=== PATIENT | female | born 1960 | race Caucasian/White ===

== ENCOUNTER 2017-10-26 09:11 | Day surgery (SDC) | payer MEDICAID, OTHER ==
[2017-10-26] MEDS ORDERED: DIAZEPAM 5 MG TAB PO ONE (09:19)
[2017-10-26] MEDS ORDERED: diphenhydrAMINE 25 MG CAP PO ONE ×2 (09:19→09:53)
[2017-10-26] MEDS ORDERED: FAMOTIDINE 20 MG TAB PO ONE (09:19)
[2017-10-26] MEDS ORDERED: NS 1,000 ML IV ONE (09:19)
[2017-10-26] MEDS ORDERED: ASPIRIN EC 325 MG TAB PO ONE ×2 (09:19→09:53)
--- NOTE | 2017-10-26 09:40 | CPEKG ---
Heart Rate: 74 RR Interval: 811 P-R Interval: 132 QRSD Interval: 90 QT Interval: 424 QTC Interval: 471 P [place]: 68 QRS [place]: 85 T Wave [place]: -59 EKG Severity - ABNORMAL ECG - EKG Impression: SINUS RHYTHM EKG Impression: NONSPECIFIC REPOL ABNORMALITY, DIFFUSE LEADS EKG Impression: INFEROLATERAL ST/T WAVE CHANGES ARE MORE PRONOUNCED WITH THIS ECG Electronically Signed By: Raymond Donis 26-Oct-2017 22:56:01
--- NOTE | 2017-10-26 09:46 | PDHPUP ---
History & Physical Update H&P update statement: This history and physical update is based on an assessment of the patient which was completed after admission or registration (within 24 hours), but prior to the surgery/procedure. H&P update: H&P reviewed & patient examined, no change in patient's condition since H&P completed
--- NOTE | 2017-10-26 09:47 | PDPROPOC ---
Sedation Plan of Care Sedation Plan of Care: vital signs stable, mental status noted, patient educated of risks, benefits, alternatives, patient can tolerate sedation ASA Classification: ASA 2 Planned drugs: fentanyl, midazolam Mallampati Score: Class 2 Mallampati Reference Image: Patient passed 3-3-2 rule?: Yes
[2017-10-26] MEDS ORDERED: FAMOTIDINE 20 MG TAB ONE (09:53)
[2017-10-26] MEDS ORDERED: DIAZEPAM 5 MG TAB ONE (09:53)
[2017-10-26 10:02] LABS: PLATELET COUNT 56 10^3/uL (150-400)
[2017-10-26 10:11] LABS: INR 1.08 (0.83-1.16); PROTIME(PATIENT) 14.2 SEC (12.0-15.0)
[2017-10-26] MEDS ORDERED: LIDOCAINE 1% 300 MG/30 ML SDV ONE (11:01)
[2017-10-26] MEDS ORDERED: IOPAMIDOL (ISOVUE-370) 150 ML BTL IV ONE ×2 (11:02→12:40)
[2017-10-26] MEDS ORDERED: MIDAZOLAM 2 MG/2 ML VIAL ONE (11:02)
[2017-10-26] MEDS ORDERED: fentaNYL 100 MCG/2 ML INJ ONE (11:02)
[2017-10-26] MEDS ORDERED: HYDROCODONE/APAP 5/325 TAB PO PRN (12:05)
[2017-10-26] MEDS ORDERED: NITROGLYCERIN 0.4 MG BTL SL PRN (12:05)
[2017-10-26] MEDS ORDERED: ONDANSETRON 4 MG/2 ML VIAL IVP PRN (12:05)
[2017-10-26] MEDS ORDERED: ATROPINE SULFATE 1 MG/10 ML SYR IVP PRN (12:05)
--- NOTE | 2017-10-26 14:20 | CPIP ---
[f rep st] INVASIVE CARDIAC PROCEDURE PLANNED PROCEDURE: Left heart catheterization with coronary bypass graft angiography and left ventriculogram. INDICATION: The patient is a 57-year-old woman with a history of 3-vessel coronary bypass surgery in 1997. She recently presented with syncope. She was found to have a reversible inferior perfusion abnormality on nuclear stress testing. A Holter monitor demonstrated nonsustained VT. She also has a history of severe peripheral vascular disease with a previous aortobifemoral bypass. DETAILS OF PROCEDURE: Initially, access was attempted via the right femoral approach. A needle was introduced into an arterial vessel. However, the guidewire could only be advanced a short distance. Contrast injection was performed through the needle and it demonstrated that it appeared that the patient's aortofemoral bypass had been accessed. However, it was small caliber and had significant tortuosity. The needle was removed and manual pressure was held. Access was attempted via the left femoral approach. Arterial blood was obtained via access with the needle. The guidewire could be advanced, but a 6 Fr dilator could only be advanced a short distance into the artery. Angiography was performed through the dilator and demonstrated that it appeared to be in a small collateral vessel. At this point, the procedure was terminated. Pressure was held on the left femoral site. A CT angiogram of the abdominal aorta with runoff will be obtained to assess for access options for her heart catheterization. /[id number]/MODL MTDD
== END 2017-10-26 17:02 | disposition home or self-care (01) ==
LOC: FCATH 09:11
PROVIDERS: ATTEND Internal Medicine Interventional Cardiology
DX: R94.39 Abnormal result of other cardiovascular function study (principal); R55 Syncope and collapse; T82.868A Thrombosis due to vascular prosthetic devices, implants and grafts, initial encounter; T82.858A Stenosis of other vascular prosthetic devices, implants and grafts, initial encounter; I25.10 Atherosclerotic heart disease of native coronary artery without angina pectoris; I47.2 Ventricular tachycardia; I77.9 Disorder of arteries and arterioles, unspecified; I73.9 Peripheral vascular disease, unspecified; Y71.2 Prosthetic and other implants, materials and accessory cardiovascular devices associated with adverse incidents; G62.9 Polyneuropathy, unspecified; Z79.82 Long term (current) use of aspirin; Z85.3 Personal history of malignant neoplasm of breast; Z95.820 Peripheral vascular angioplasty status with implants and grafts; Z95.1 Presence of aortocoronary bypass graft; Z88.0 Allergy status to penicillin; Z90.5 Acquired absence of kidney; Z53.09 Procedure and treatment not carried out because of other contraindication
CPT/HCPCS: J1644; J2250; J3010; Q9967

== ENCOUNTER 2017-11-10 07:43 | Observation (INO) | payer MEDICAID ==
[2017-11-10] MEDS ORDERED: ASPIRIN EC 325 MG TAB PO ONE ×2 (07:55→08:34)
[2017-11-10] MEDS ORDERED: NS 1,000 ML IV ONE (07:55)
[2017-11-10] MEDS ORDERED: FAMOTIDINE 20 MG TAB PO ONE (07:55)
[2017-11-10] MEDS ORDERED: diphenhydrAMINE 25 MG CAP PO ONE ×2 (07:55→08:34)
[2017-11-10] MEDS ORDERED: DIAZEPAM 5 MG TAB PO ONE (07:55)
--- NOTE | 2017-11-10 08:13 | CPEKG ---
Heart Rate: 91 RR Interval: 659 P-R Interval: 132 QRSD Interval: 86 QT Interval: 376 QTC Interval: 463 P [place]: 74 QRS [place]: 89 T Wave [place]: 265 EKG Severity - ABNORMAL ECG - EKG Impression: SINUS RHYTHM EKG Impression: ST DEPRESSION, CONSIDER ISCHEMIA, ANT-LAT LDS Electronically Signed By: Jorge Harris 10-Nov-2017 13:02:23
[2017-11-10] MEDS ORDERED: FAMOTIDINE 20 MG TAB ONE (08:34)
[2017-11-10] MEDS ORDERED: DIAZEPAM 5 MG TAB ONE (08:34)
[2017-11-10 08:46] LABS: INR 1.06 (0.83-1.16)
[2017-11-10 09:10] LABS: PLATELET COUNT 82 10^3/uL (150-400)
[2017-11-10] MEDS ORDERED: HEPARIN 10,000 UNIT/10 ML MDV (1,000 UNIT/ML) ONE (09:36)
[2017-11-10] MEDS ORDERED: fentaNYL 100 MCG/2 ML INJ ONE (09:36)
[2017-11-10] MEDS ORDERED: IOPAMIDOL (ISOVUE-370) 150 ML BTL IV ONE ×2 (09:36→10:59)
[2017-11-10] MEDS ORDERED: MIDAZOLAM 2 MG/2 ML VIAL ONE (09:36)
[2017-11-10] MEDS ORDERED: VERAPAMIL 5 MG/2 ML VIAL ONE ×2 (09:36→10:59)
[2017-11-10] MEDS ORDERED: LIDOCAINE 1% 300 MG/30 ML SDV ONE (09:36)
[2017-11-10] MEDS ORDERED: NITROGLYCERIN 1,500 MCG/15 ML VIAL MISC ONE (11:22)
[2017-11-10] MEDS ORDERED: ONDANSETRON 4 MG/2 ML VIAL IVP PRN (11:53)
[2017-11-10] MEDS ORDERED: ATROPINE SULFATE 1 MG/10 ML SYR IVP PRN (11:53)
[2017-11-10] MEDS ORDERED: OXYCODONE/APAP 5/325 TAB PO PRN (11:53)
[2017-11-10] MEDS ORDERED: NITROGLYCERIN 0.4 MG BTL SL PRN (11:53)
[2017-11-10] MEDS ORDERED: HYDROCODONE/APAP 5/325 TAB PO PRN (11:53)
[2017-11-10] MEDS ORDERED: fentaNYL 100 MCG/2 ML INJ IVP ONE ×2 (15:00→15:45)
[2017-11-10] MEDS ORDERED: ACETAMINOPHEN 325 MG TAB PO PRN (17:26)
[2017-11-10] MEDS: GABAPENTIN 300 MG CAP PO SCH (20:57)
[2017-11-11] MEDS ORDERED: ASPIRIN 81 MG CHEWABLE TAB PO SCH (09:00)
[2017-11-11] MEDS ORDERED: ATORVASTATIN CALCIUM 40 MG TAB PO SCH (09:00)
[2017-11-11] MEDS: GABAPENTIN 300 MG CAP PO SCH (09:17)
[2017-11-11 10:59] VITALS: BP 99/59
--- NOTE | 2017-11-11 11:28 | PDCARPN ---
Cardiology Progress Note Chief Complaint: CAD, Right Wrist Hematoma Assessment/Plan: Assessment: Post cardiac cath yesterday with Dr Ramos. No flow-limiting disease found. Hemostasis difficulty post cath. Right wrist hematoma. Pressure to site required until 9PM last evening. Area ecchymotic and tender. NO bleeding this AM. HYPOXIA on Room air down to 80%. Has required continuous oxygen to keep her SAO2 above 90%. Ambulated the crowe this morning and SAO2 off oxygen down to 70%. She denies dizziness, lightheadedness, or SOB. Will order Home oxygen to be used continuously with nasal prongs. She will need a Oxygen Concentrator with humidification, and portable oxygen for mobility. Plan: Plan for follow up with Dr Ramos on Friday November 17, 2017. Appointment has been made. He can re-evaluate oxygen need and possible Pulmonary consult. She is stable for Discharge. 11/11/17 11:19 Subjective: My wrist is tender. Otherwise, I feel ready to go home. Reviewed/Discussed With: multidisciplinary team Time Spent With Patient: 30 minutes. Home Oxygen coordination 30 minutes. Objective: Vital Signs (8 Hrs) Temp Pulse Resp BP Pulse Ox 11/11/17 10:57 36.7 C 67 16 99/59 L 91 L 11/11/17 10:00 73 L 11/11/17 09:21 92 11/11/17 07:46 36.9 C 57 L 19 119/66 91 L 11/11/17 04:45 36.8 C 58 L 18 126/69 H 92 Intake/Output (24 Hrs) 11/10/17 11/11/17 11/12/17 05:59 05:59 05:59 Intake Total 1240 Balance 1240 Intake: Oral (ml) 690 IV Intake (ml) 550 Other: Weight 48.988 kg Number of Voids Toilet 1 Number of Stools Toilet 1 Result Diagrams: 11/10/17 08:32 11/10/17 08:32 EKG: Regular Sinus Rhythm. Rate 72 - Physical Exam Constitutional: no apparent distress Cardiovascular: regular rate and rhythm, no murmurs, no rubs, no gallops Peripheral Pulses: 2+: dorsalis-pedis (R), dorsalis-pedis (L) Respiratory: clear to auscultate bilat, no crackles, no wheezes Skin: warm, no edema, other (right wrist hematoma resolving--Radial/Ulnar pulses 2+--No active bleeding.) Neurologic: AAOx3 Psychiatric: cooperative, interactive ICD10 Worksheet Patient Problems: Problems Problem Status Onset Traumatic hematoma of right wrist Acute
--- NOTE | 2017-11-11 11:40 | PDHOMEO2F ---
Home Oxygen Face to Face Home Orders: I certify that a physician or a nurse practitioner or physician's clinical nursing assistant has had a [id number] encounter with this patient on the date of this order due to the diagnosis listed, which relates to the primary reason the patient requires home oxygen. Alternative treatments have been tried, or considered, and deemed ineffective. It is anticipated that supplemental oxygen will result in improvement with treatment. Home oxygen qualifying diagnosis: Hypoxia Rest SAO2 80, Ambulating SAO2, 70 Home oxygen secondary diagnosis: Syncope SpO2 on room air (%): 80% Frequency of home oxygen needed: with activity, continuous, during sleep Home oxygen liters per minute: 2L/Min Home oxygen delivery device: nasal cannula Concentrator: Yes (with humidification) E-tanks for mobility and back up: Yes If ordering portable O2, is the patient mobile in the home?: Yes I certify that, based on these findings, the home oxygen is medically necessary for this patient for the following length of time. Length of time home oxygen needed: 99 years (She will need continuous oxygen, along with portable oxygen for mobility.)
--- NOTE | 2017-11-11 13:19 | GDS ---
[f rep st] DISCHARGE SUMMARY ADMIT DIAGNOSES: 1. Coronary artery disease. 2. Abnormal nuclear stress test. 3. Planned cardiac angiogram. DISCHARGE DIAGNOSES: 1. Coronary artery disease. 2. Status post angiogram, with no flow-limiting lesions. 3. Hypoxia. 4. Hematoma of right wrist. HOSPITAL COURSE: This nice lady was brought in for cardiac angiogram by Dr. Yossi Ramos, on October [id number]. She had a nuclear stress test in the office that indicated possible cardiac ischemia. She was taken to the laborer demolition by Dr. Yossi Ramos, where he used the right wrist approach, finding no f low-limiting disease. She was then taken to PCU for overnight observation due to her right wrist dev eloping a hematoma. Pressure was applied and was required until approximately 9 p.m. last evening. She had no bleeding of the site during the night. This morning her right wrist is quite ecchymotic w ith tenderness. There is no bleeding. Her distal fingers have good capillary refill. Her radial an d ulnar pulses are intact at 2+. She has good sensation through her hand and entire arm. It is felt at this time that she is stable for discharge. She will follow up with Dr. Ramos on November 17 in our [place] office. It was discovered while resting in bed that her oxygen saturations will go down as low as 80%. She h as had continuous oxygen in place in order to keep her oxygen level above 90%. She was taken for a w alk in the crowe this morning and her oxygen saturations were down to 70%. She does not feel dizzy or lightheaded, or short of breath. Oxygen order was placed for home oxygen to be used continuously wi th nasal prongs. Oxygen should be at 2 L. I have requested oxygen concentrator with humidification and portable oxygen for mobility. At her followup appointment with Dr. Ramos, on November 17, he can further evaluate for possible need for pulmonary consult at this time she is stable for discharge. EXAM ON DAY OF DISCHARGE: VITAL SIGNS: Blood pressure 99/59, heart rate 67 and regular, oxygen satu ration 91% on 2 L of oxygen. EKG shows normal sinus rhythm with a rate of 72. HEART: Rate is regul ar. No murmurs, rubs, gallops. LUNGS: Sounds are clear to auscultation. No wheezes, rales, or rho nchi. EXTREMITIES: Right wrist pulses are intact and equal. Peripheral lower extremity pulses are palpable at 2+. No edema. Cardiac catheterization on 11/10/2017, she was taken to the cardiac laborer demolition by Dr. Yossi Ramos. Cardiac angiogram showed no flow-limiting disease. DISCHARGE PLAN: 1. She will be discharged home on home oxygen, to be used continuously. She will follow up with Dr. Ramos on November 17, at the [place] office. 2. Wrist precautions were provided verbally and written. 3. Should the site bleed, hold continuous firm pressure and go to the nearest emergency room. 4. Call the [facility] should you have any concerns or questions. At this time, she is stable for discharge. /[id number]/MODL
--- NOTE | 2017-11-11 16:26 | ASMTCMCOM ---
CM Note CM Note Notes: 11/11/2017 Case Management Note Met w/pt to discuss dispo planning. 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 There are no PT or OT evals ordered at this time. Pt has follow up with Dr. Ramos on Monday. Pt lives independently. Pt boyfriend Miguel Lujan [phone] is planning to transport pt home. Date Signed: 11/11/2017 11:44 AM Electronically Signed By:Ariana Small RN
--- NOTE | 2017-11-11 17:32 | ASMTLACE ---
LACE Length of stay for Answers: Less than 1 day current admission Acuity / Level of Answers: No Care: Did the patient have an inpatient admission? # of Emergency department Answers: 0 visits in the last 6 months Date Signed: 11/11/2017 05:32 PM Electronically Signed By:Ariana Small RN
--- NOTE | 2017-11-15 13:41 | ASDISCHSUM ---
Discharge Information Plan Status:Home with No Needs Medically Cleared to Leave:11/11/2017 Discharge Date:11/11/2017 01:35 PM CM D/C Disposition:Home, Routine, Self-Care ADT D/C Disposition:Home, Routine, Self-Care Projected Discharge Date:11/11/2017 01:35 PM Transportation at D/C: Discharge Delay Reason: Follow-Up Date:11/11/2017 01:35 PM Discharge Slot: Final Diagnosis: Placement Information Patient Contact Information Contact Name:FISH Relationship:Other Address:[address] [place] [address] City:[place] Alternate Phone: [facility]/Zip Code:[place] [address] Email: Financial Information Financial Class:Medicaid Primary Plan Desc: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 # of Emergency department Answers: 0 visits in the last 6 months Date Signed: 11/11/2017 05:32 PM Electronically Signed By:Ariana Small RN [facility] CM Progress Note CM Note CM Note Notes: 11/11/2017 Case Management Note Met w/pt to discuss dispo planning. 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 There are no PT or OT evals ordered at this time. Pt has follow up with Dr. Ramos on Monday. Pt lives independently. Pt boyfriend Miguel Lujan [phone] is planning to transport pt home. Date Signed: 11/11/2017 11:44 AM Electronically Signed By:Arinaa Small RN Intervention Information
== END 2017-11-11 13:35 | disposition home or self-care (01) ==
LOC: FCATH 07:43 → F2W 16:52
PROVIDERS: ADMIT Internal Medicine Interventional Cardiology; ATTEND Internal Medicine Interventional Cardiology
PROC: 4A023N7 Measurement of Cardiac Sampling and Pressure, Left Heart, Percutaneous Approach (ICD-10-PCS; principal; 2017-11-10)
DX: I25.10 Atherosclerotic heart disease of native coronary artery without angina pectoris (principal); R09.02 Hypoxemia; M79.81 Nontraumatic hematoma of soft tissue; I73.9 Peripheral vascular disease, unspecified; Z95.1 Presence of aortocoronary bypass graft; Z88.0 Allergy status to penicillin
CPT/HCPCS: 93005; 93459; C1769; G0378; J1644; J2250; J3010; Q9967

== ENCOUNTER 2017-12-05 09:25 | Inpatient (IN) | payer MEDICAID ==
[2017-12-05] MEDS ORDERED: BUPIVACAINE 0.5% 30 ML SDV ONE (09:40)
[2017-12-05] MEDS ORDERED: CLINDAMYCIN 600 MG/DEXTROSE 50 ML IV ONE (09:47)
[2017-12-05] MEDS ORDERED: LR 1,000 ML IV ONE (09:48)
[2017-12-05] MEDS ORDERED: LIDOCAINE 1% 2 ML INJ ID PRN (09:48)
[2017-12-05] MEDS ORDERED: MIDAZOLAM 2 MG/2 ML VIAL IVP ONE (10:04)
--- NOTE | 2017-12-05 10:04 | PDANEPAE ---
ANE History of Present Illness Right fem pop ANE Past Medical History - Cardiovascular History Hx Hypertension: Yes Hx Arrhythmias: No Hx Chest Pain: No Hx Coronary Artery / Peripheral Vascular Disease: Yes Hx CHF / Valvular Disease: No Hx Palpitations: No Cardiovascular History Comment: MS 1997. HYPERLIPIDEMIA - Pulmonary History Hx COPD: No Hx Asthma/Reactive Airway Disease: No Hx Recent Upper Respiratory Infection: No Hx Oxygen in Use at Home: Yes O2 in Use at Home (L/minute): 2 Hx Sleep Apnea: No Sleep Apnea Screening Result - Last Documented: Positive Pulmonary History Comment: HYPOXIA DX 10/2017 ON OXYGEN SINCE - Neurologic History Hx Cerebrovascular Accident: No Hx Seizures: No Hx Dementia: No - Endocrine History Hx Diabetes: No - Renal History Hx Renal Disorders: Yes Renal History Comment: LT NEPHRECTOMY 1997 - Neurological & Psychiatric Hx Hx Neurological and Psychiatric Disorders: No - Cancer History Hx Cancer: Yes Cancer History Comment: BREAST - Congenital Disorder History Hx Congenital Disorders: No - GI History Hx Gastrointestinal Disorders: No - Other Health History Other Health History: RT WRIST ECCHYMOTIC POST HEART CATH 11/10/17. PERIPHERAL NEUROPATHY POST CHEMO 2008 - Chronic Pain History Chronic Pain: Yes (RT LEG AND BILATERAL FEET) - Surgical History Prior Surgeries: RT ILIOFEMORAL ENDARTERECTOMY WITH PATCH ANGIOPLASTY 12/2010. LT BREAST LUMPECTOMY 2008. GABGX3 1997. RT CAROTID ENDARTERECTOMY 1997. LT NEPHRECTOMY (RENAL OCCULSION) 1997. AORTA FEMORAL BYPASS 1997 ANE Review of Systems Review of Systems: - Exercise capacity METS (RN): 2 METS ANE Patient History - Allergies Allergies/Adverse Reactions: Penicillins Allergy (Intermediate, Verified 12/09/10 12:50) Rash - Home Medications Home Medications: Atorvastatin Calcium [Lipitor 40 mg (*)] 80 mg PO DAILY 10/19/17 [Last Taken Unknown] Gabapentin [Neurontin 300 MG (*)] 600 mg PO TID 10/19/17 [Last Taken 10/26/17 06 :00] HYDROcodone/APAP 10/325 [[place] 10/325 (*)] 1 tab PO TID 10/19/17 [Last Taken 06:00] - NPO status NPO Status: no food or drink >8 hours - Smoking Hx Smoking Status: Former smoker ANE Labs/Vital Signs - Vital Signs Height: 151.13 cm Weight: 45.359 kg ANE Physical Exam - Airway Mallampati Score: Class 1 Mouth exam: dentures - Pulmonary Pulmonary: reduced air movement - Cardiovascular Cardiovascular: regular rate and rhythym, systolic murmur, carotid bruit (Right carotid bruit) - ASA Status ASA Status: IV ANE Anesthesia Plan Anesthesia Plan: general endotracheal anesthesia
[2017-12-05] MEDS ORDERED: ROCURONIUM 50 MG/5 ML VIAL ONE (11:39)
[2017-12-05] MEDS ORDERED: PROPOFOL 200 MG/20 ML VIAL ONE (11:39)
[2017-12-05] MEDS ORDERED: DEXAMETHASONE 4 MG/ML VIAL ONE (11:39)
[2017-12-05] MEDS ORDERED: PHENYLEPHRINE 10 MG/ML SDV ONE (12:42)
[2017-12-05] MEDS ORDERED: epHEDrine SULFATE 10 MG/ML SYR ONE (12:48)
[2017-12-05] MEDS ORDERED: REMIFENTANIL HCL 1 MG VIAL ONE (13:13)
[2017-12-05] MEDS ORDERED: PROPOFOL/EMULSION 500 MG/50 ML BOTTLE IV ONE (13:13)
[2017-12-05] MEDS ORDERED: HEPARIN 10,000 UNIT/10 ML MDV (1,000 UNIT/ML) ONE (13:16)
[2017-12-05] MEDS ORDERED: ALBUMIN 5% 250 ML BOTTLE IV ONE (14:10)
[2017-12-05] MEDS ORDERED: PROTAMINE SULFATE 50 MG/5 ML VIAL IVP ONE (14:35)
[2017-12-05] MEDS ORDERED: THROMBIN (BOVINE) 20,000 UNIT SPRAY TP ONE (14:37)
[2017-12-05] MEDS ORDERED: ONDANSETRON 4 MG/2 ML VIAL ONE (14:43)
[2017-12-05] MEDS ORDERED: SUGAMMADEX SODIUM 200 MG/2 ML VIAL IVP ONE (14:49)
[2017-12-05] MEDS ORDERED: HYDROmorphONE/DILAUDID 1 MG/ML INJ IVP PRN (15:09)
[2017-12-05] MEDS ORDERED: ONDANSETRON 4 MG/2 ML VIAL IVP PRN (15:09)
[2017-12-05] MEDS ORDERED: 1/2 NS 1,000 ML IV SCH (15:15)
--- NOTE | 2017-12-05 15:16 | POSTOPPROG ---
Post Op Note Date of Operation: 12/05/17 Surgeon: Elton Decker [place] Carver: Shraddha Nayak Anesthesiologist: Be Lord Anesthesia: GET(General Endotracheal) Pre-op Diagnosis: PAD, severe R leg claudication, hx aortobifem bypass Post-op Diagnosis: same Procedure: L to R fem-fem bypass with L femoral endarterectomy Findings: palpable pedal pulses post procedure. tiny R femoral artery Inf/Abcess present in the surg proc area at time of surgery?: No EBL: 50-100 Complications: none Specimen(s): plaque/intimal hyperplasia to pathology
[2017-12-05] MEDS ORDERED: fentaNYL 100 MCG/2 ML INJ ONE (15:59)
[2017-12-05] MEDS: fentaNYL 100 MCG/2 ML INJ IVP PRN ×3 (16:03→16:30)
[2017-12-05] MEDS ORDERED: NALOXONE HCL 0.4 MG/ML INJ IVP PRN (16:22)
--- NOTE | 2017-12-05 16:28 | POSTANESTH ---
Post Anesthetic Evaluation Cardiovascular Status: Similar to Pre-Op Cond Respiratory Status: Similar to Pre-op Cond. Level of Consciousness/Mental Status: Can Participate in Eval Pain Control: Adequate, Prn Tx Ordered Nausea/Vomiting Control: Adequate, Prn Tx Ordered Complications Possibly Related to Anesthesia: None Noted
[2017-12-05] MEDS: HYDROCODONE/APAP 10/325 TAB PO SCH ×2 (19:03→22:43)
[2017-12-05] MEDS: CLOPIDOGREL BISULFATE 75 MG TAB PO SCH (19:03)
[2017-12-05] MEDS: GABAPENTIN 300 MG CAP PO SCH ×2 (19:03→22:43)
[2017-12-05] MEDS: DOCUSATE SODIUM 100 MG CAP PO SCH (22:43)
[2017-12-06] MEDS: oxyCODONE IR 5 MG TAB PO PRN ×3 (06:40→18:32)
[2017-12-06] MEDS: CLOPIDOGREL BISULFATE 75 MG TAB PO SCH (08:30)
[2017-12-06] MEDS: GABAPENTIN 300 MG CAP PO SCH ×3 (08:30→21:51)
[2017-12-06] MEDS: HYDROCODONE/APAP 10/325 TAB PO SCH ×3 (08:30→21:50)
--- NOTE | 2017-12-06 08:56 | SOAPPROG ---
SOAP Progress Note Assessment/Plan: Assessment/Plan: 57 Y F c multiple comorbidities, especially vascular issues-- hx CT, CABG, aortobifem bypass--now s/p fem fem bypass c impra graft and c L femoral endarterectomy and patch closure. POD#1. Doing well. Ok to take BP in R arm despite hx breast CA surgery. Large difference in BP L and R arms, possible 2/2 subclavian a. stenosis. Suspect documented hypotension is false as BP taken in R arm. OOB today. Avoid severe bending at hips. PT/OT ordered. Leger out later today if does well with mobility. Plavix started as a new med for graft patency. Regular diet. Polycythemia. On plavix and will start SC VTE ppx tomorrow. Dispo: transfer to [facility] surg status. hospital dc pending. She eventually wants to go home with her boyfriend. Await PT/OT recs, but suspect home PT/OT could be helpful. S: Night was ok, but difficult morning 2/2 pain. Better now after getting meds. O: alert, nad mmm chest clear rrr abd soft inc well dressed no shadowing ext: both feet warm, no lesions or ulcers. R foot with lightly palpable pedal pulses and confirmed by doppler. L pedal pulses heard on doppler, nonpalpable. 12/06/17 08:49 Objective: Vital Signs Temp Pulse Resp BP Pulse Ox 36.6 C 67 18 108/63 92 12/06/17 07:50 12/06/17 07:50 12/06/17 07:50 12/06/17 07:50 12/06/17 07:50 Laboratory Results 12/06/17 05:00 12/06/17 05:00 12/05/17 12/06/17 12/07/17 05:59 05:59 05:59 Intake Total 3692 Output Total 775 Balance 1597 ICD10 Worksheet Patient Problems: Problems Problem Status Onset CAD (coronary artery disease) Acute Hypoxia Acute Traumatic hematoma of right wrist Acute
[2017-12-06] MEDS: DOCUSATE SODIUM 100 MG CAP PO SCH ×2 (09:00→21:51)
[2017-12-06] MEDS ORDERED: ATORVASTATIN CALCIUM 40 MG TAB PO SCH (09:00)
--- NOTE | 2017-12-06 09:00 | PDMN ---
Medical Necessity Medical necessity: IP per order per [facility] guidelines (IP per [facility] and [facility] cpt 60858) L to R fem-fem bypass w/L femoral endarterectomy
--- NOTE | 2017-12-06 12:05 | ASMTCMCOM ---
CM Note CM Note Notes: Patient is POD #1 L to R fem fem bypass with L fem endartectomy. PT/OT have evaluated and recommend home with DME. Patient will be staying with her boyfriend, and will stay on the first floor. Case Management available if any other needs arise. Date Signed: 12/06/2017 12:04 PM Electronically Signed By:Juani Power RN
[2017-12-06] MEDS: ATORVASTATIN CALCIUM 40 MG TAB PO SCH (21:51)
[2017-12-07] MEDS: oxyCODONE IR 5 MG TAB PO PRN ×5 (03:06→22:34)
[2017-12-07] MEDS: CLOPIDOGREL BISULFATE 75 MG TAB PO SCH (08:00)
[2017-12-07] MEDS: DOCUSATE SODIUM 100 MG CAP PO SCH ×2 (08:00→21:36)
[2017-12-07] MEDS: GABAPENTIN 300 MG CAP PO SCH ×3 (08:00→21:36)
[2017-12-07] MEDS: HYDROCODONE/APAP 10/325 TAB PO SCH ×3 (08:00→21:37)
[2017-12-07] MEDS: ENOXAPARIN 40 MG/0.4 ML SYR SC SCH (08:01)
[2017-12-07] MEDS: ALBUTEROL 3 ML DEYVIAL IH PRN ×3 (08:23→20:49)
[2017-12-07] MEDS ORDERED: POLYETHYLENE GLYCOL 3350 17 GM PKT PO PRN (08:53)
[2017-12-07] MEDS ORDERED: MAGNESIUM HYDROXIDE 30 ML UDCUP PO PRN (08:53)
[2017-12-07] MEDS ORDERED: LACTULOSE 20 GM/30 ML UDCUP PO PRN (08:53)
[2017-12-07] MEDS ORDERED: BISACODYL 10 MG SUPP PR PRN (08:53)
--- NOTE | 2017-12-07 09:44 | SOAPPROG ---
SOAP Progress Note Assessment/Plan: Assessment: 57 Y F with a history of SD, CABG, aortobifem bypass, now s/p fem-fem bypass with impra graft, left femoral endarterectomy and patch closure. POD#2 S: Doing well overall. RT was in room giving pt neb treatment for low oxygenation during visit. Pt does use O2 at home, but needs have increased in the last day. C/o some pain at incision sites, as well as "down the front of my right leg" this am, now improved after pain meds. Has gotten up with PT/OT. O: Alert Afebrile No increased WOB Abdomen: soft Femoral incision site dressings cdi, mildly tender to palpation Extremities: both feet warm, faintly palpable pedal pulses bilaterally Plan: Continue plavix for graft patency. D/c byrd catheter. Discussed coughing, deep breathing, and using IS frequently. Ok to get oob. Avoid sharp bending at hips. Ok to start lovenox today. Dipso home likely in the next day or so. Plan: 12/07/17 09:45 Objective: Vital Signs Temp Pulse Resp BP Pulse Ox 36.8 C 78 15 171/86 H 88 L 12/07/17 07:45 12/07/17 08:26 12/07/17 08:26 12/07/17 07:45 12/07/17 09:31 Laboratory Results 12/06/17 05:00 12/06/17 05:00 12/06/17 12/07/17 12/08/17 05:59 05:59 05:59 Intake Total 5731 5885 Output Total 955 8328 Balance 1597 187 ICD10 Worksheet Patient Problems: Problems Problem Status Onset CAD (coronary artery disease) Acute Hypoxia Acute Traumatic hematoma of right wrist Acute
[2017-12-07] MEDS: SENNOSIDES/DOCUSATE SODIUM TAB PO SCH ×2 (10:03→21:37)
[2017-12-07] MEDS ORDERED: IOPAMIDOL (ISOVUE 370) 100 ML BTL IV ONE (10:24)
[2017-12-07] MEDS: ACETYLCYSTEINE 10% IH/PO 4 ML VIAL IH SCH ×2 (17:56→20:49)
[2017-12-07] MEDS: guaiFENesin 600 MG TAB.ER PO SCH (21:36)
[2017-12-07] MEDS: ATORVASTATIN CALCIUM 40 MG TAB PO SCH (21:37)
[2017-12-08] MEDS: ALBUTEROL 3 ML DEYVIAL IH PRN ×5 (05:40→20:42)
[2017-12-08] MEDS: ACETYLCYSTEINE 10% IH/PO 4 ML VIAL IH SCH ×4 (05:40→20:41)
[2017-12-08] MEDS: oxyCODONE IR 5 MG TAB PO PRN ×2 (07:00→21:45)
[2017-12-08] MEDS: guaiFENesin 600 MG TAB.ER PO SCH ×2 (09:30→20:20)
[2017-12-08] MEDS: DOCUSATE SODIUM 100 MG CAP PO SCH ×2 (09:30→20:21)
[2017-12-08] MEDS: CLOPIDOGREL BISULFATE 75 MG TAB PO SCH (09:30)
[2017-12-08] MEDS: GABAPENTIN 300 MG CAP PO SCH ×3 (09:31→20:20)
[2017-12-08] MEDS: HYDROCODONE/APAP 10/325 TAB PO SCH ×3 (09:31→20:19)
[2017-12-08] MEDS: ENOXAPARIN 40 MG/0.4 ML SYR SC SCH (09:31)
[2017-12-08] MEDS: SENNOSIDES/DOCUSATE SODIUM TAB PO SCH ×2 (09:32→20:22)
--- NOTE | 2017-12-08 09:42 | SOAPPROG ---
SOAP Progress Note Assessment/Plan: Assessment: 57 Y F with a history of [place], CABG, aortobifem bypass, now s/p fem-fem bypass with impra graft, left femoral endarterectomy and patch closure. POD#2 S: Doing well overall. RT was in room giving pt neb treatment for low oxygenation during visit. Pt does use O2 at home, but needs have increased in the last day. C/o some pain at incision sites, as well as "down the front of my right leg" this am, now improved after pain meds. Has gotten up with PT/OT. O: Alert Afebrile No increased WOB Abdomen: soft Femoral incision site dressings cdi, mildly tender to palpation Extremities: both feet warm, faintly palpable pedal pulses bilaterally Plan: Continue plavix for graft patency. D/c byrd catheter. Discussed coughing, deep breathing, and using IS frequently. Ok to get oob. Avoid sharp bending at hips. Ok to start lovenox today. Dipso home likely in the next day or so. Plan: 12/07/17 09:45 12/08/17 09:[address] yesterday negative for PE. Oxygen saturation improving with Mucomyst neb treatments. Currently sating in the mid-90s on 5L. Typically wears 2L at home. Breath sounds with expiratory wheeze and rhonchi bilaterally, improved from yesterday. Graft pulse heard on doppler. +pedal pulses bilaterally. L foot somewhat cooler to touch than R today. Denies pain in feet with ambulation. Biggest complaint is incisional pain. Groin dressings taken down today, incisions are cdi. Pt wants to go home with boyfriend who can help her. Objective: Vital Signs Temp Pulse Resp BP Pulse Ox 36.9 C 95 17 152/63 H 91 L 12/08/17 08:07 12/08/17 08:07 12/08/17 08:07 12/08/17 08:07 12/08/17 08:07 Laboratory Results 12/06/17 05:00 12/06/17 05:00 12/07/17 12/08/17 12/09/17 05:59 05:59 05:59 Intake Total 1737 200 Output Total 1550 900 Balance 187 -700 ICD10 Worksheet Patient Problems: Problems Problem Status Onset CAD (coronary artery disease) Acute Hypoxia Acute Traumatic hematoma of right wrist Acute
--- NOTE | 2017-12-08 12:42 | ASMTCMCOM ---
CM Note CM Note Notes: CM spoke to SAILAJA Green regarding d/c POC. Pt should not have any d/c needs at time of d/c. CM available for any changes. Plan: Independent Date Signed: 12/08/2017 12:41 PM Electronically Signed By:TU Montes De Oca
[2017-12-08] MEDS: ATORVASTATIN CALCIUM 40 MG TAB PO SCH (20:21)
[2017-12-09] MEDS: oxyCODONE IR 5 MG TAB PO PRN ×3 (02:12→13:42)
[2017-12-09] MEDS: ALBUTEROL 3 ML DEYVIAL IH PRN ×2 (04:47→10:23)
[2017-12-09] MEDS: ACETYLCYSTEINE 10% IH/PO 4 ML VIAL IH SCH ×2 (04:47→10:23)
[2017-12-09] MEDS: HYDROCODONE/APAP 10/325 TAB PO SCH (10:34)
[2017-12-09] MEDS: guaiFENesin 600 MG TAB.ER PO SCH (10:34)
[2017-12-09] MEDS: ENOXAPARIN 40 MG/0.4 ML SYR SC SCH (10:34)
[2017-12-09] MEDS: SENNOSIDES/DOCUSATE SODIUM TAB PO SCH (10:34)
[2017-12-09] MEDS: CLOPIDOGREL BISULFATE 75 MG TAB PO SCH (10:35)
[2017-12-09] MEDS: DOCUSATE SODIUM 100 MG CAP PO SCH (10:35)
[2017-12-09] MEDS: GABAPENTIN 300 MG CAP PO SCH (10:35)
--- NOTE | 2017-12-09 11:21 | SOAPPROG ---
SOAP Progress Note Assessment/Plan: Assessment: WOUNDS OK/ AFEBRILE/ EXCELLENT PULSES/ STILL ON O2 SHE IS AT HOME Plan:HOME TODAY 12/09/17 11:19 Objective: Vital Signs Temp Pulse Resp BP Pulse Ox 37.2 C 87 16 165/76 H 92 12/09/17 07:38 12/09/17 10:28 12/09/17 10:28 12/09/17 07:38 12/09/17 10:28 Laboratory Results 12/06/17 05:00 12/06/17 05:00 12/08/17 12/09/17 12/10/17 05:59 05:59 05:59 Intake Total 200 1890 Output Total 900 2300 Balance -700 -410 ICD10 Worksheet Patient Problems: Problems Problem Status Onset CAD (coronary artery disease) Acute Hypoxia Acute Traumatic hematoma of right wrist Acute
--- NOTE | 2017-12-09 11:47 | ASDISCHSUM ---
Discharge Information Plan Status:Home with No Needs Medically Cleared to Leave:12/09/2017 Discharge Date:12/09/2017 CM D/C Disposition:Home, Routine, Self-Care ADT D/C Disposition: Projected Discharge Date:12/09/2017 Transportation at D/C: Discharge Delay Reason: Follow-Up Date:12/09/2017 Discharge Slot: Final Diagnosis: Placement Information Patient Contact Information Contact Name:FISH Relationship:Other Address:[address] [place] [address] City:[place] Alternate Phone: State/Zip Code:[place] [address] Email: Financial Information Financial Class:Medicaid Primary Plan Desc:MEDICAID [facility] [place] Primary Plan Number:[id number] Secondary Plan Desc: Secondary Plan Number: Assessment Information BC CM Progress Note CM Note CM Note Notes: Patient is POD #1 L to R fem fem bypass with L fem endartectomy. PT/OT have evaluated and recommend home with DME. Patient will be staying with her boyfriend, and will stay on the first floor. Case Management available if any other needs arise. Date Signed: 12/06/2017 12:04 PM Electronically Signed By:Juani Power RN LACE LACE Length of stay for Answers: 4-6 days current admission Acuity / Level of Answers: Yes Care: Did the patient have an inpatient admission? Comorbidities - select Answers: Coronary Artery Disease all that apply Opioid dependence / Chronic pain Previous myocardial infarction Other Notes: HTN # of Emergency department Answers: 0 visits in the last 6 months Score: 15 Date Signed: 12/09/2017 11:45 AM Electronically Signed By:Ariana Small RN [facility] Progress Note CM Note CM Note Notes: CM spoke to SAILAJA Green regarding d/c POC. Pt should not have any d/c needs at time of d/c. CM available for any changes. Plan: Independent Date Signed: 12/08/2017 12:41 PM Electronically Signed By:TU Montes De Oca Case Management Discharge Plan Note Case Management Discharge Discharge Order Complete? Answers: Yes Patient to Obtain Answers: Independently Medications Discharge Comments Notes: 12/09/2017 Case Management Note Pt to d/c independent with follow up as directed. Date Signed: 12/09/2017 11:46 AM Electronically Signed By:Ariana Small RN Intervention Information
[2017-12-09 12:16] VITALS: BP 179/81
--- NOTE | 2017-12-25 11:12 | GOP ---
[f rep st] OPERATIVE REPORT DATE OF OPERATION: SURGEON: Elton Decker MD SUPERVISOR [employer] DIVISION: JIAN Alcantara. ANESTHESIOLOGIST: Dr. Lord. PREOPERATIVE DIAGNOSIS: Peripheral artery disease with severe right leg claudication and previous aortofemoral bypass. POSTOPERATIVE DIAGNOSIS: SAME PROCEDURE PERFORMED: Femoral-femoral bypass with left femoral endarterectomy and right femoral profundoplasty and endarterectomy FINDINGS: The patient was found to have an occluded limb of her right aorta- fem bypass. She also had a significant stenosis of the origin of the profunda femoris on the right. On the left, she had marked stenosis of the profunda femoris and origin of the left SFA. The aortofemoral limb was wide open with good inflow. ESTIMATED BLOOD LOSS: Less than 100 cc. DESCRIPTION OF PROCEDURE: The patient was taken to the operating room, received satisfactory general endotracheal anesthesia by Dr. Lord. She was placed in the supine position, prepped and draped in usual sterile fashion. Bilateral vertical groin incisions were made, carried through the subcutaneous tissue and old scar tissue. Dissection extended down to the old bypass grafts and onto the common femoral, superficial femoral, and profunda femoris arteries. These were all dissected free and controlled with vessel loops. An end-to-side anastomosis was made with an 8 mm [place] graft to the common femoral artery on the left side. This was done with a running Hemashield 6 suture, creating good inflow to the bypass graft. A second incision was made distally over the SFA and profunda origins on the left side. Plaque was completely removed from the common femoral and superficial femoral and profunda origins and a Dacron patch was placed over the SFA origin and the profunda femoris origin. This was sutured in place with a Hemashield 6 suture. Flow was first established on that side through the profunda and then back down the leg to the superficial femoral. Vessels were all flushed through the fem-fem bypass. The graft was tunneled in a suprapubic subcutaneous tunnel over to the right groin, where it was anastomosed in an end-to-side fashion to the right common femoral artery extending over the profunda orifice. Arteriotomy had been made in the common femoral artery and extended through the profunda orifice doing an endarterectomy on the origin of the profunda on the right as well. The graft was laid in place with a running Hemashield 6 suture and flow was first established through the profunda and then back down the SFA. Suture lines appeared to be hemostatic. Good flow across from the bypass. Wounds were irrigated. Heparin was reversed with protamine. Wounds were sprayed with some topical thrombin and closed in layers using 2-0 Vicryl for the deep fascia , 3-0 Vicryl for the subcutaneous tissue and skin sima for the skin. She tolerated the procedure well. She was taken to the recovery room in good condition. There were no complications. Copy requested to: ZENOBIA DOMINGUEZ /[id number]/MODL MTDD
--- NOTE | 2017-12-26 14:10 | GDS ---
[f rep st] DISCHARGE SUMMARY DISCHARGE DIAGNOSES: 1. Peripheral artery disease with severe right leg claudication and previous aortofemoral bypass. 2. Chronic obstructive airway disease, requiring oxygen at home. 3. History of myocardial infarction. 4. History of coronary artery bypass graft. PROCEDURES: Femoral-femoral bypass with left femoral endarterectomy and right femoral profundoplasty and endarterectomy. INTRAOPERATIVE FINDINGS: Patient was found to have an occluded limb of her right aortofemoral bypass . She also had a significant stenosis of the origin of the profunda femoris on the right. On the le ft, she had marked stenosis of the profunda femoris and the origin of the left SFA. The aortofemoral limb was wide open with good inflow. CONSULTATIONS: Include Physical Therapy, Occupational Therapy, and Respiratory Therapy. HOSPITAL COURSE: The patient is a 57-year-old female well known to us with both coronary and periphe ral artery disease. She had a history of an aortobifemoral bypass and was having severe right leg cl audication symptoms. She underwent the above-described procedure with the above-described findings. The procedure was uncomplicated, and she tolerated it well. She had palpable pedal pulses postproce dure. The patient was initially kept on bedrest. She was then seen by Physical therapy and Occupati onal Therapy. She had increased oxygen needs up to 6 L without findings on chest x-ray to explain th is, and so a CT angiogram was done to rule out PE. No pulmonary embolus was found. She was seen by Respiratory Therapy and started with nebulizer treatments. DISCHARGE INSTRUCTIONS: Patient was discharged to home in stable condition with instructions to cont inue her home oxygen, see her PCP, and follow up with us in Surgery. Limitations were discussed. Pl ease see MAR for accurate discharge medications, which include Plavix, albuterol, and Mucinex, all ne w medicines for her. /[id number]/MODL
== END 2017-12-09 16:52 | disposition home or self-care (01) | DRG 181 ==
LOC: F2W 09:25 → F3E 15:01 → F2N 17:05 → F2W 12-06 13:15
PROVIDERS: ADMIT Surgery; ATTEND Surgery
DX: T82.898A Other specified complication of vascular prosthetic devices, implants and grafts, initial encounter (principal); I70.213 Atherosclerosis of native arteries of extremities with intermittent claudication, bilateral legs; I25.10 Atherosclerotic heart disease of native coronary artery without angina pectoris; J44.9 Chronic obstructive pulmonary disease, unspecified; I25.2 Old myocardial infarction; Z95.1 Presence of aortocoronary bypass graft; Z85.3 Personal history of malignant neoplasm of breast; Z99.81 Dependence on supplemental oxygen
CPT/HCPCS: 97116-GP; 97161-GP; 97165-GO; 97530-GO; 97530-GP; 97535-GO; C1768; J1100; J1170; J1644; J1650; J2250; J2370; J2405; J2704; J2720; J3010; J7613; P9041; Q9967

== ENCOUNTER 2018-07-16 11:17 | Inpatient (IN) | payer MEDICAID ==
[2018-07-16] MEDS ORDERED: ACETAMINOPHEN 325 MG TAB PO PRN (12:32)
[2018-07-16] MEDS ORDERED: ALBUTEROL 60 PUFFS/8 GM MDI IH PRN (12:32)
[2018-07-16] MEDS ORDERED: PROTOCOL K PHOSPHATE 1 DOSE IV PRN (12:32)
[2018-07-16] MEDS ORDERED: PROTOCOL POTASSIUM 1 DOSE MISC PRN (12:32)
[2018-07-16] MEDS ORDERED: ONDANSETRON DISINTEGRATING 4 MG TAB PO PRN (12:32)
[2018-07-16] MEDS ORDERED: ONDANSETRON 4 MG/2 ML VIAL IVP PRN (12:32)
[2018-07-16] MEDS ORDERED: PROTOCOL MAGNESIUM 1 DOSE IV PRN (12:32)
--- NOTE | 2018-07-16 12:44 | PDGENHP ---
History and Physical - Chief Complaint leg pain - History of Present Illness 58 year old female with pmh of PVD with multiple stents placed for revascularization,CAD sp CABG, nephrectomy and COPD who was sent from her cardiologists office for direct admission due to concern of worsening bilateral leg claudication. she says that she has had ongoing bilateral lower extremity pain in her legs for weeks, and that the pain is worsening and the level of the pain is rising. she has been following a surgeon who wants to do a graft but they want her to be cleared from a plant puller for the surgeyr first. The process has been slow. She was seeing her plant puller today who evaluated her and told her she needs to come to the hospital for further evaluation. She complains of ongoing leg pain up to the level of the top of her legs now at rest. She also endorses increased lower extremity edema. She feels like her left leg is now hot and red. She denies any fevers chills nausea vomiting diarrhea hematuria dysuria. She does endorse orthopnea. She does use 2-3 L of oxygen and has not had to turn this up. History Information - Allergies/Home Medication List Allergies/Adverse Reactions: Penicillins Allergy (Intermediate, Verified 12/09/10 12:50) Rash Home Medications: Acetylcysteine 10% [Acetylcysteine 10% Ih/Po] 2 ml IH Q6HRS PRN 07/16/18 [Last Taken 07/16/18] Aspirin EC [Aspirin EC 81 mg (*)] 81 mg PO DAILY 07/16/18 [Last Taken 07/16/18] Atorvastatin Calcium [Lipitor 40 mg (*)] 40 mg PO HS 07/16/18 [Last Taken Unknown] HYDROcodone/APAP 10/325 [Rigby 10/325 (*)] 1 tab PO QID 07/16/18 [Last Taken ] I have personally reviewed and updated: family history, medical history, social history, surgical history - Past Medical History coronary artery disease, peripheral artery disease - Surgical History Reports: coronary bypass surgery, vascular surgery - Family History Positive for: non-pertinent - Social History Smoking Status: Former smoker Alcohol Use: None Drug Use: Marijuana Review of Systems Review of Systems: ROS: 10pt was reviewed & negative except for what was stated in HPI & below Physical Exam Physical Exam: Temp Pulse Resp BP Pulse Ox 36.7 C 90 18 151/57 H 64 L 07/16/18 11:58 07/16/18 11:58 07/16/18 11:58 07/16/18 11:58 07/16/18 11:58 Constitutional: no apparent distress, appears nourished, not in pain Eyes: PERRL, anicteric sclera, EOMI Ears, Nose, Mouth, Throat: moist mucous membranes, hearing normal, ears appear normal, no oral mucosal ulcers Cardiovascular: systolic murmur, edema Peripheral Pulses: 1+: dorsalis-pedis (R), dorsalis-pedis (L) Respiratory: no respiratory distress, no rales or rhonchi, clear to auscultation Gastrointestinal: normoactive bowel sounds, soft, non-tender abdomen, no palpable masses Genitourinary: no bladder fullness, no bladder tenderness Skin: rash (left calf with erythema, hot and healing scab on mid calf. ) Musculoskeletal: full muscle strength, no muscle tenderness, normal joint ROM, no joint effusions Neurologic: AAOx3 Psychiatric: interacting appropriately, not anxious, not encephalopathic, thought process linear Lymph, Heme, Immunologic: no cervical LAD, no supraclavicular LAD Lab Data & Imaging Review 07/16/18 12:46 07/16/18 17:42 Assessment & Plan Plan: cellulitis- Check labs, but clinically appears red and hot, with cellulitis. start vanco after drawing cultures PVD- surgery to evaluate for possible bypass or stent. I reviewed the CTA which shows patent grafts but large amount of anasarca. Need to consider cardiac causes. CAD- History of CABG. Continue asa, statin. HLD- on lipitor. cont for now. HTN- Not on anything for this currently. Add hydralazine PRN COPD- On albuterol. added duonebs for now. Breast Cancer- Hx of BRCA. Chronic pain- continue home vicodin PRN PPX- Lovenox Fluids-None Lytes-WNL Nutrition- regular Cor- Full dispo- obs for cellulitis, PVD
[2018-07-16 13:14] LABS: INR 1.24 (0.83-1.16); PROTIME(PATIENT) 15.8 SEC (12.0-15.0)
[2018-07-16] MEDS ORDERED: IOPAMIDOL (ISOVUE 370) 100 ML BTL IV ONE (14:23)
[2018-07-16 15:07] LABS: PLATELET COUNT 51 10^3/uL (150-400)
[2018-07-16] MEDS: HYDROCODONE/APAP 5/325 TAB PO PRN (19:23)
--- NOTE | 2018-07-16 20:33 | SOAPPROG ---
SOAP Progress Note Assessment/Plan: Assessment/Plan: 58 Y F hx CABG, nephrectomy, aortobiiliac bypass, fem fem bypass, admitted c B leg pain and swelling, L leg redness. Seen and examined with Dr. Decker. Full consult note dictated earlier today, but yet to post. CTA wet read done, final report pending. R limb of aortoiliac appears chronically occluded. L limb and fem-fem is open. Arterial studies ordered. Patient to get vancomycin for cellulitis. Further plans pending response to vanc and Dr. Decker' CTA read. 07/16/18 20:26 Objective: Vital Signs Temp Pulse Resp BP Pulse Ox 36.4 C 67 20 84/58 L 93 07/16/18 16:17 07/16/18 16:17 07/16/18 16:17 07/16/18 16:17 07/16/18 16:17 Laboratory Results 07/16/18 12:46 07/16/18 17:42 07/15/18 07/16/18 07/17/18 05:59 05:59 05:59 Intake Total 200 Balance 200 PT 15.8 SEC (12.0-15.0) H 07/16/18 12:46 INR 1.24 (0.83-1.16) H 07/16/18 12:46 ICD10 Worksheet Patient Problems: Problems Problem Status Onset CAD (coronary artery disease) Acute Hypoxia Acute Traumatic hematoma of right wrist Acute
--- NOTE | 2018-07-16 20:36 | GCON ---
GENERAL AND VASCULAR SURGERY CONSULTATION HISTORY OF PRESENT ILLNESS: The patient is a 58-year-old female well known to us with a history of CABG, left nephrectomy, and peripheral vascular disease status post aortobiiliac bypass and more recently femoral-femoral bypass in December of 2017 with both left and right femoral endarterectomies. She was doing well up until about 4-5 weeks ago when she began to have progressively worsening bilateral lower extremity swelling. She now complains of pain at rest , which is worse with standing and walking. She was seen in the clinic last week, and a CT angiogram was ordered but has not yet been done. Today, her edema is better, but she has significant erythema of her left leg. Pedal pulses are dopplerable; however, they are quite weak on the right side compared to her office visit last week. She has an audible pulse in her fem-fem bypass over her pubic mons. The patient says she had an ultrasound that was negative for DVT about 4 weeks ago. She was placed on Plavix after her surgery, but did not refill her prescription. She has tried doubling her diuretics for the edema with little result. She denies fevers or chills. She was seen in the Outpatient Cardiology Clinic and directly admitted to the hospitalist service. PAST MEDICAL HISTORY: Includes breast cancer, carotid artery disease, coronary artery disease, peripheral vascular disease, peripheral neuropathy, syncope, ventricular tachycardia. PAST SURGICAL HISTORY: Includes aortoiliac bypass, fem-fem bypass, CABG, carotid endarterectomy, left nephrectomy. MEDICATIONS: Anoro Ellipta inhaler, aspirin 81 mg, atorvastatin, gabapentin, [place], ProAir. ALLERGIES: Penicillin. SOCIAL HISTORY: The patient works. She does not smoke. PHYSICAL EXAMINATION: GENERAL: Reveals an alert, oriented, well-developed, well-nourished, 58-year-old female, alert and oriented x3, in no acute distress. HEENT: Normocephalic, atraumatic. Pupils equal and round. NECK: Supple. No bruits. CHEST: Clear to auscultation bilaterally without wheezes, rhonchi, or rales. CARDIAC: Regular rate and rhythm without murmurs. ABDOMEN : Soft, nontender, nondistended. She does have some redness and swelling over her pubic mons similar to the adjacent color of her thighs. EXTREMITIES: Warm and good Doppler pulse of graft to the pubic mons. Poor right dorsalis pedis and posterior tib pulses on Doppler. Left lower extremity is quite erythematous , bright with superficial scab over her anterior verdin and good pedal pulses on Doppler on the left side. IMPRESSION: This is a 58-year-old female with a history of multiple vascular surgeries. Her edema is improved from her office visit last week. However, now her left leg appears to be very cellulitic. PLAN: Cultures and labs have been taken. We discussed this with the hospitalist who plans to start her on vancomycin for cellulitis. We have also ordered a CT angiogram of her aorta with runoff to evaluate her grafts and arterial disease. There is some concern for a distal embolus. We will continue to follow along with you. Seen and examined with Dr. Decker. /[id number]/MODL MTDD
[2018-07-16] MEDS: GABAPENTIN 300 MG CAP PO SCH (20:54)
[2018-07-16] MEDS ORDERED: VANCOMYCIN HCL/NORMAL SALINE 250 ML IV SCH (21:00)
[2018-07-17] MEDS ORDERED: diphenhydrAMINE 25 MG CAP PO PRN (05:39)
[2018-07-17] MEDS: HYDROCODONE/APAP 5/325 TAB PO PRN ×2 (05:54→05:58)
[2018-07-17] MEDS: VANCOMYCIN 750 MG in D5W 150 ML IV SCH ×2 (08:38→21:22)
[2018-07-17] MEDS: GABAPENTIN 300 MG CAP PO SCH ×3 (08:39→21:12)
[2018-07-17] MEDS ORDERED: ENOXAPARIN 40 MG/0.4 ML SYR SC SCH (09:00)
[2018-07-17 09:25] LABS: PLATELET COUNT 42 10^3/uL (150-400)
[2018-07-17] MEDS ORDERED: MAGNESIUM SULF 1 GM/DEXTROSE 100 ML IV ONE (10:58)
--- NOTE | 2018-07-17 11:00 | CPEKG ---
Test Reason : OPEN Blood Pressure : / mmHG Vent. Rate : 068 BPM Atrial Rate : 067 BPM P-R Int : 113 ms QRS Dur : 086 ms QT Int : 426 ms P-R-T Axes : 070 092 058 degrees QTc Int : 454 ms Sinus rhythm Confirmed by Jorge Harris ([id number]) on 07/17/2018 11:00:12 AM Referred By: Confirmed By:Jorge Harris
[2018-07-17] MEDS: HYDROCODONE/APAP 10/325 TAB PO SCH ×3 (12:02→21:12)
--- NOTE | 2018-07-17 14:04 | SOAPPROG ---
SOAP Progress Note Assessment/Plan: Assessment/Plan: 58 Y F hx CABG, nephrectomy, aortobiiliac bypass, fem fem bypass, admitted c B leg pain and swelling, L leg redness. CTA reviewed. R limb of aortoiliac bypass is occluded, but this seems chronic. Otherwise, grafts are patent. B leg edema from CHF? Echo being done. Cellulitis seems to be responding to vancomycin--less bright, slightly more dusky red with no progression. 07/17/18 14:02 Objective: Vital Signs Temp Pulse Resp BP Pulse Ox 36.7 C 64 18 133/58 H 89 L 07/17/18 07:25 07/17/18 07:25 07/17/18 07:25 07/17/18 07:25 07/17/18 07:25 Laboratory Results 07/17/18 09:00 07/17/18 09:00 07/16/18 07/17/18 07/18/18 05:59 05:59 05:59 Intake Total 600 Output Total 225 Balance 375 PT 15.8 SEC (12.0-15.0) H 07/16/18 12:46 INR 1.24 (0.83-1.16) H 07/16/18 12:46 ICD10 Worksheet Patient Problems: Problems Problem Status Onset CAD (coronary artery disease) Acute Hypoxia Acute Traumatic hematoma of right wrist Acute
--- NOTE | 2018-07-17 15:11 | ECHO ---
[email or web address] [address] [address] Main: [phone] Fax: [email or web address] Echocardiogram Name: NIKKI SPRAGUE MR#: [id number] Study Date: 07/17/2018 Study Time: 12:10 PM Date of : 1960 Age: 58 year(s) Height: 152.4 cm (60 in.) Weight: 53.52 kg (118 lb.) BSA: 1.49 m2 Gender: Female Examination: Echo Indication: anasarca Image Quality: Adequate Contrast: Requested by: Reggie Kunz BP: 133 mmHg/58 mmHg Heart Rate: Rhythm: Indication: anasarca Procedure Staff Chemistry Manager: Kena Orellana [facility] Reading Physician: Rigo Gao MD Requesting Provider: Conclusions: Normal size left ventricle. Low normal left ventricular systolic function. EF is 50 %. Basal inferior and inferoseptal hypokinesis. Grade II diastolic dysfunction. Elevated filling pressure, lateral E/e' 15.5. . Normal size right ventricle. Mildly concentric RV hypertrophy. Mildly reduced RV function. TAPSE mildly reduced at 1.6 cm . The left atrium is mildly dilated. The right atrium is mildly dilated. Moderate mitral valve regurgitation is present. No mitral stenosis is present. Mild to moderate tricuspid valve regurgitation. Right ventricular systolic pressure measures 47mmHg. The IVC is dilated. There is less than 50% respiratory excursion. RAP 20 mmHg. No pericardial effusion. There is a pleural effusion. Measurements: Chambers Valvular Assessment AV/MV Valvular Assessment TV/PV Normal Normal Normal Name Value Range Name Value Range Name Value Range IVSd (2D): 0.9 cm (0.6 cm-1.1 AV Vmax: 1.49 m/s (1 m/s-1.7 TR Vmax: 2.58 mm/s ( - ) cm) m/s) TR PGmax: 27 mmHg ( - ) LVDd (2D): 4.3 cm (3.9 cm-5.3 AV maxP mmHg ( - ) syst. PAP: 47 mmHg ( - ) cm) Patient: NIKKI SPRAGUE Study Date: 07/17/2018 Page 1 of 2 12:10 PM LVDs (2D): 2.8 cm (2.1 cm-4 LVOT Vmax: 0.89 m/s (0.7 m/s-1.1 PV Vmax: 0.98 m/s (0.6 m/s-0.9 cm) m/s) m/s) LVPWd (2D): 0.8 cm ( - ) TANO (Vmax): 1.9 cm2 ( - ) PV PGmax: 4 mmHg ( - ) LVOTd 2.0 cm 2.0 cm mm MV E Vmax: 1.18 m/s ( - ) LVEF (BP): 50 % (>=55 %) MV A Vmax: 0.63 m/s ( - ) RVDd(2D): 3.3 cm (1.9 cm-3.8 MV E/A: 1.87 ( - ) cmmm) MV meanP mmHg ( - ) Continued Measurements: Chambers Valvular Assessment AV/MV Valvular Assessment TV/PV Name Value Name Value Name Value LADs: 3.7 cm MV Annulus: 2.8 cm CVP (est.): 20 mmHg LADs Lon.3 cm MV DecTime: 151 m/s LA Area: 17.4 cm2 MV E' Septal: 0.04 m/s LA Volume: 51 ml MV E/E' Septal: 29.60 LA Volume Index: 34.2 ml/m2 MV E/E' Lateral: 15.50 TAPSE: 1.6 cm MV VTI: 17.00 cm RA Area: 15.7 cm2 MR ERO: 0.090 cm2 MR PISA radius: 5 mm MR Reg. Volume: 15 ml MR Reg. Fraction: 14 % Findings: Left Ventricle: Normal size left ventricle. No LV hypertrophy. Low normal left ventricular systolic function. EF is 50 %. Basal inferior and inferoseptal hypokinesis. Grade II diastolic dysfunction. Elevated filling pressure, lateral E/e' 15.5. . Right Ventricle: Normal size right ventricle. Mildly concentric RV hypertrophy. Mildly reduced RV function. TAPSE mildly reduced at 1.6 cm . Left Atrium: The left atrium is mildly dilated. Normal appearing atrial septum. Right Atrium: The right atrium is mildly dilated. Mitral Valve: There is mild thickening of the mitral valve leaflets. Moderate mitral valve regurgitation is present. No mitral stenosis is present. Aortic Valve: The aortic valve is tri-leaflet. Mild aortic cusp calcification is noted. Trivial to mild aortic valve regurgitation. No aortic valve stenosis is present. Tricuspid Valve: The tricuspid valve is normal in appearance and function. Mild to moderate tricuspid valve regurgitation. Right ventricular systolic pressure measures 47mmHg. The pulmonary artery pressure is mildly increased. Pulmonic Valve: Pulmonary valve not well visualized. Mild pulmonic valve regurgitation is noted. Aorta: Normal size aortic root. IVC: The IVC is dilated. There is less than 50% respiratory excursion. RAP 20 mmHg. Pericardium: No pericardial effusion. There is a pleural effusion. (No Signature Object) Patient: NIKKI SPRAGUE Study Date: 07/17/2018 Page 2 of 2 12:10 PM [id number]
--- NOTE | 2018-07-17 16:25 | ASMTCMCOM ---
CM Note CM Note Notes: 07/17/2018 Case Management Note Discussed in rounds today. Pt admitted for hypoxia and possible cellulitis. Met w/pt to discuss PT recommendation for home care. Pt in agreement. Discussed multiple options, pt requested referral to [facility]. Faxed via [employer]. [facility] referral completed. Discharge date unclear. Case Management d/c poc: [facility] in home caregiver PT Case Management to follow. Date Signed: 07/17/2018 04:25 PM Electronically Signed By:Ariana Small RN
--- NOTE | 2018-07-17 17:19 | HOSPPROG ---
Hospitalist Progress Note Assessment/Plan: cellulitis- Check labs, but clinically appears red and hot, with cellulitis. start vanco after drawing cultures Anasarca- CTA showing substantial anasarca to abdomen with bilateral effusions. TTE pending to evaluate cardiac function. Would benefit from some diuresis, will give low dose lasix and assess response in am. Monitor lytes as well. PVD- surgery to evaluate for possible bypass or stent. I reviewed the CTA which shows patent grafts but large amount of anasarca. Need to consider cardiac causes. Thrombocytopenia- seems to be chronic going back years, but worse since 2018. I reviewed her chart but do not see an official diagnosis for this, or workup. If continues to drop will need ot discuss with hematology for etiology and treatment. CAD- History of CABG. Continue asa, statin. HLD- on lipitor. cont for now. HTN- Not on anything for this currently. Add hydralazine PRN COPD- On albuterol. added duonebs for now. Breast Cancer- Hx of BRCA. Chronic pain- continue home vicodin PRN PPX- Lovenox Fluids-None Lytes-WNL Nutrition- regular Cor- Full dispo- inpatient for cellulitis, anasarca, possible CHF. Subjective: left leg is very itchy but hurts less. breathing unchanged. Objective: Vital Signs Temp Pulse Resp BP Pulse Ox 36.6 C 56 L 20 134/60 H 95 07/17/18 15:30 07/17/18 15:30 07/17/18 15:30 07/17/18 15:30 07/17/18 15:30 Laboratory Results 07/17/18 09:00 07/17/18 09:00 07/16/18 07/17/18 07/18/18 05:59 05:59 05:59 Intake Total 600 Output Total 225 Balance 375 PT 15.8 SEC (12.0-15.0) H 07/16/18 12:46 INR 1.24 (0.83-1.16) H 07/16/18 12:46 - Physical Exam Constitutional: no apparent distress, appears nourished, not in pain Eyes: PERRL, anicteric sclera, EOMI Ears, Nose, Mouth, Throat: moist mucous membranes, hearing normal, ears appear normal, no oral mucosal ulcers Cardiovascular: regular rate and rhythym, no murmur, rub, or gallop, edema Respiratory: no respiratory distress, reduced air movement Gastrointestinal: normoactive bowel sounds, soft, non-tender abdomen, no palpable masses Genitourinary: no bladder fullness, no bladder tenderness, no renal bruits Skin: no rashes or abrasions, no fluctuance, no induration Musculoskeletal: full muscle strength, no muscle tenderness, normal joint ROM Neurologic: AAOx3, sensation intact bilaterally Psychiatric: interacting appropriately, not anxious, not encephalopathic, thought process linear Lymph, Heme, Immunologic: no cervical LAD, no supraclavicular LAD ICD10 Worksheet Patient Problems: Problems Problem Status Onset CAD (coronary artery disease) Acute Hypoxia Acute Traumatic hematoma of right wrist Acute
[2018-07-17] MEDS ORDERED: FUROSEMIDE 20 MG/2 ML VIAL IVP ONE (17:21)
[2018-07-17] MEDS: ATORVASTATIN CALCIUM 40 MG TAB PO SCH (21:12)
[2018-07-17] MEDS: diphenhydrAMINE 25 MG CAP PO PRN (21:13)
--- NOTE | 2018-07-17 22:53 | PDMN ---
Medical Necessity Medical necessity: Pt meets IP criteria as of 07/17/2018 per MD and MCG M-70 ( cellulitis); los > 2 mn for ongoing tx and management of BLE cellulitis in the setting of anasarca and PVD; requiring IV ABX, IV diuresis, cardiology consultation, cardiac monitoring and PT; comorbid CAD, HTN, COPD, Breast CA, and HLD.
[2018-07-18 04:33] LABS: PLATELET COUNT 52 10^3/uL (150-400)
[2018-07-18] MEDS: HYDROCODONE/APAP 10/325 TAB PO SCH ×4 (06:14→20:57)
[2018-07-18] MEDS: GABAPENTIN 300 MG CAP PO SCH ×3 (07:43→20:57)
[2018-07-18] MEDS: ASPIRIN EC 81 MG TAB PO SCH (07:43)
[2018-07-18] MEDS: diphenhydrAMINE 25 MG CAP PO PRN ×2 (07:43→20:57)
[2018-07-18] MEDS: VANCOMYCIN HCL/NORMAL SALINE 250 ML IV SCH (08:10)
--- NOTE | 2018-07-18 09:03 | SOAPPROG ---
ABE Progress Note Assessment/Plan: Assessment/Plan: 58 Y F hx CABG, nephrectomy, aortobiiliac bypass, fem fem bypass, admitted c B leg pain and swelling, L leg redness. CTA reviewed. R limb of aortoiliac bypass is occluded, but this seems chronic. Otherwise, grafts are patent. Appreciate investigation into cardiac causes for B edema. Cellulitis seems to be improving with vancomycin. R knee swelling also improving--could she have had early septic joint also? Will discuss adding plavix back to patient's med list for graft protection with Dr. Decker today. S: less pain. walking a little better. left leg is very itchy. O: alert, nad ctab rrr abd soft good B doppler pedal pulses 07/18/18 09:00 Objective: Vital Signs Temp Pulse Resp BP Pulse Ox 36.7 C 76 16 131/97 H 88 L 07/18/18 07:39 07/18/18 07:39 07/18/18 07:39 07/18/18 07:39 07/18/18 07:39 Laboratory Results 07/18/18 03:45 07/18/18 03:45 07/17/18 07/18/18 07/19/18 05:59 05:59 05:59 Intake Total 600 1080 Output Total 225 1120 Balance 375 -40 PT 15.8 SEC (12.0-15.0) H 07/16/18 12:46 INR 1.24 (0.83-1.16) H 07/16/18 12:46 ICD10 Worksheet Patient Problems: Problems Problem Status Onset CAD (coronary artery disease) Acute Hypoxia Acute Traumatic hematoma of right wrist Acute
[2018-07-18] MEDS ORDERED: FUROSEMIDE 20 MG/2 ML VIAL IVP ONE (15:37)
--- NOTE | 2018-07-18 16:20 | WOCRNPDOC ---
WOCRN Advanced Assessment Note - Skin Integrity Problem, Advanced Assess Left Anterior Lower Leg Dressing Type: Open to Air Exudate Amount: None Integumentary Issue Intervention: Dressing Applied Ladonna Wound Tissue: Erythema, Hot, Hemosiderin Staining, Venous Dermatitis, Shiny , Xerotic, Hair Loss, Painful/Tender Wound Bed Constitution: Granulation Tissue (40%), Unstable Eschar Wound Edges: Attached, Not Attached, Well Defined Site Measurement - Head-to-Toe Length X Width X Depth (cm): 1.9x1.4x0.1 Skin Integrity Problem Comment: Two evolving wounds. One in midline of lower leg , the other slightly medial. The midline wound is intact with serous drainage present under the skin. This may or may not evolve into an open wound. The medial wound is necrotic. In this wound, the top layer of eschar mechanically debrided revealing a granulating wound bed. Patient reports that she will be getting AYE's done as she has evidence of both PAD and PVD in bilateral lower extremities. Cleaned with ns and gauze. Silvasorb to wound bed covered by mepilex transfer and ABD. Secured with Kerlix. Wound care will follow.
--- NOTE | 2018-07-18 17:09 | HOSPPROG ---
Hospitalist Progress Note Assessment/Plan: cellulitis -cont Vancomycin CHF, Cor Pulmonale, Volume overload/anasarca -CTA showing substantial anasarca to abdomen with bilateral effusions -give additional Lasix today -TTE: LVEF 50%, Basal/inferior septal hypokinesis, RVH, RVSP 47 mmHg PVD- surgery to evaluate for possible bypass or stent. I reviewed the CTA which shows patent grafts but large amount of anasarca. Need to consider cardiac causes. -CTA c/w R Limb aortic iliac bypass occlusion but appears chronic. -no indication for surgery at this time Thrombocytopenia- seems to be chronic going back years, but worse since 2018. I reviewed her chart but do not see an official diagnosis for this, or workup. -Now with mild Hematuria -will repeat INR, H/H. -further reccs once results are in CAD- History of CABG. Continue asa, statin. HLD- on lipitor. cont for now. HTN- Not on anything for this currently. Add hydralazine PRN COPD- On albuterol. added duonebs for now. Breast Cancer- Hx of BRCA. Chronic pain- continue home vicodin PRN PPX- Lovenox Fluids-None Lytes-WNL Nutrition- regular Cor- Full dispo- inpatient for cellulitis, anasarca, possible CHF. continue Subjective: leg swelling is better. no cp or sob. Objective: Vital Signs Temp Pulse Resp BP Pulse Ox 36.7 C 67 16 148/57 H 92 07/18/18 15:55 07/18/18 15:55 07/18/18 15:55 07/18/18 15:55 07/18/18 15:55 Laboratory Results 07/18/18 03:45 07/18/18 03:45 07/17/18 07/18/18 07/19/18 05:59 05:59 05:59 Intake Total 600 1080 Output Total 225 1120 300 Balance 375 -40 -300 PT 15.8 SEC (12.0-15.0) H 07/16/18 12:46 INR 1.24 (0.83-1.16) H 07/16/18 12:46 - Physical Exam Constitutional: chronically ill appearing Eyes: PERRL Ears, Nose, Mouth, Throat: moist mucous membranes, hearing normal Cardiovascular: regular rate and rhythym, edema Respiratory: no respiratory distress, no rales or rhonchi, clear to auscultation Gastrointestinal: normoactive bowel sounds, soft, non-tender abdomen Skin: warm, rash Neurologic: AAOx3 Psychiatric: interacting appropriately, not anxious, not encephalopathic ICD10 Worksheet Patient Problems: Problems Problem Status Onset CAD (coronary artery disease) Acute Hypoxia Acute Traumatic hematoma of right wrist Acute
[2018-07-18 18:17] LABS: INR 1.23 (0.83-1.16); PROTIME(PATIENT) 15.7 SEC (12.0-15.0)
[2018-07-18 18:46] LABS: PLATELET COUNT 53 10^3/uL (150-400)
[2018-07-18] MEDS: ATORVASTATIN CALCIUM 40 MG TAB PO SCH (20:57)
[2018-07-18] MEDS: ALBUTEROL 3 ML DEYVIAL IH PRN (21:27)
[2018-07-19] MEDS: HYDROCODONE/APAP 5/325 TAB PO PRN ×2 (01:52→08:21)
[2018-07-19] MEDS: diphenhydrAMINE 25 MG CAP PO PRN ×2 (04:38→18:58)
[2018-07-19] MEDS: HYDROCODONE/APAP 10/325 TAB PO SCH ×4 (06:02→20:27)
[2018-07-19] MEDS: GABAPENTIN 300 MG CAP PO SCH ×3 (08:21→20:28)
[2018-07-19 08:32] LABS: PLATELET COUNT 48 10^3/uL (150-400)
[2018-07-19] MEDS ORDERED: MAGNESIUM SULF 1 GM/DEXTROSE 100 ML IV ONE ×2 (08:51→11:45)
[2018-07-19] MEDS: VANCOMYCIN HCL/NORMAL SALINE 250 ML IV SCH (08:59)
[2018-07-19] MEDS: ASPIRIN EC 81 MG TAB PO SCH (11:42)
[2018-07-19] MEDS: HYDROCORTISONE 1% CREAM TP SCH ×2 (11:53→20:29)
[2018-07-19] MEDS ORDERED: FUROSEMIDE 40 MG/4 ML VIAL IVP ONE ×2 (12:16→14:30)
--- NOTE | 2018-07-19 12:25 | HOSPPROG ---
Hospitalist Progress Note Assessment/Plan: cellulitis (PCN allergy) -Much improved -cont Vancomycin for now, can likely change to oral agent soon CHF, Cor Pulmonale, Volume overload/anasarca -CTA showing substantial anasarca to abdomen with bilateral effusions -give additional Lasix today -TTE: LVEF 50%, Basal/inferior septal hypokinesis, RVH, RVSP 47 mmHg -cont IV Diuresis today PVD -CTA c/w R Limb aortic iliac bypass occlusion but appears chronic. -no indication for surgery at this time -cont Aspirin. May benefit from Plavix Thrombocytopenia- seems to be chronic going back years, but worse since 2018. I reviewed her chart but do not see an official diagnosis for this, or workup. -Hematuria reported yesterday but none last night or this morning -Platelets are decreasing slightly -INR is ok -will obtain a Heme consult CAD- History of CABG. Continue asa, statin. HLD- on lipitor. cont for now. HTN- Not on anything for this currently. Add hydralazine PRN COPD- On albuterol. added duonebs for now. Breast Cancer- Hx of BRCA. Chronic pain- continue home vicodin PRN PPX- Lovenox Fluids-None Lytes-WNL Nutrition- regular Cor- Full dispo- inpatient Plan: Vancomycin (PCN allergy) Heme consult Wound care Diuretics Subjective: no overnight events. Feels better. Still with edema, improving Objective: Vital Signs Temp Pulse Resp BP Pulse Ox 36.8 C 62 17 137/60 H 91 L 07/19/18 08:10 07/19/18 08:10 07/19/18 08:10 07/19/18 08:10 07/19/18 08:10 Laboratory Results 07/19/18 08:10 07/19/18 08:10 07/18/18 07/19/18 07/20/18 05:59 05:59 05:59 Intake Total 1080 1140 Output Total 1120 1100 Balance -40 40 PT 15.7 SEC (12.0-15.0) H 07/18/18 17:55 INR 1.23 (0.83-1.16) H 07/18/18 17:55 - Physical Exam Constitutional: no apparent distress Eyes: PERRL Ears, Nose, Mouth, Throat: moist mucous membranes, hearing normal Cardiovascular: regular rate and rhythym, edema Respiratory: no respiratory distress, no rales or rhonchi, clear to auscultation Gastrointestinal: normoactive bowel sounds, soft, non-tender abdomen Skin: warm Neurologic: AAOx3 Psychiatric: interacting appropriately, not anxious, not encephalopathic Lymph, Heme, Immunologic: No petechiae ICD10 Worksheet Patient Problems: Problems Problem Status Onset CAD (coronary artery disease) Acute Hypoxia Acute Traumatic hematoma of right wrist Acute
[2018-07-19] MEDS: ALBUTEROL 3 ML DEYVIAL IH PRN (16:08)
[2018-07-19] MEDS: ATORVASTATIN CALCIUM 40 MG TAB PO SCH (20:28)
[2018-07-20] MEDS: diphenhydrAMINE 25 MG CAP PO PRN ×3 (02:14→19:25)
[2018-07-20] MEDS: HYDROCODONE/APAP 5/325 TAB PO PRN (02:25)
[2018-07-20 04:47] LABS: PLATELET COUNT 57 10^3/uL (150-400)
[2018-07-20] MEDS: ALBUTEROL 3 ML DEYVIAL IH PRN (09:41)
[2018-07-20] MEDS ORDERED: FUROSEMIDE 20 MG/2 ML VIAL IVP ONE (10:23)
[2018-07-20] MEDS ORDERED: methylPREDNISolone SOD SUCC 125 MG/2 ML VIAL IVP ONE (10:24)
[2018-07-20] MEDS: VANCOMYCIN HCL/NORMAL SALINE 250 ML IV SCH (10:39)
[2018-07-20] MEDS: GABAPENTIN 300 MG CAP PO SCH ×3 (10:44→22:23)
[2018-07-20] MEDS: HYDROCODONE/APAP 10/325 TAB PO SCH ×4 (10:46→22:21)
[2018-07-20] MEDS: HYDROCORTISONE 1% CREAM TP SCH ×2 (10:47→22:24)
[2018-07-20] MEDS: ALBUTEROL 3 ML DEYVIAL IH SCH ×3 (12:37→20:28)
--- NOTE | 2018-07-20 13:47 | HOSPPROG ---
Hospitalist Progress Note Assessment/Plan: cellulitis (PCN allergy) -improving -cont Vancomycin for now, can likely change to oral agent soon. Consider Doxycycline on discharge. CHF, Cor Pulmonale, Volume overload/anasarca -CTA showing substantial anasarca to abdomen with bilateral effusions -give additional Lasix today -Overall volume is improving but she is still volume overloaded -cont with IV Lasix, will schedule Lasix 20mg IV BID. Mild elevation of BUN noted. Cr ok. Will follow closely -TTE: LVEF 50%, Basal/inferior septal hypokinesis, RVH, RVSP 47 mmHg PVD -CTA c/w R Limb aortic iliac bypass occlusion but appears chronic. -no indication for surgery at this time -cont Aspirin. May benefit from Plavix Acute on chronic respiratory failure COPD and chronic respiratory failure on 3 L -Lungs sounds are decreased throughout. Good bronchodilator response per Respiratory. -Her O2 needs abruptly increased today and she was started on steroids. Will continue a short burst. Thrombocytopenia- seems to be chronic going back years, but worse since 2018. I reviewed her chart but do not see an official diagnosis for this, or workup. -?Hematuria: none reported today -Platelets are decreasing slightly -INR is ok -Heme will consult today CAD- History of CABG. Continue asa, statin. HLD- on lipitor. cont for now. HTN- Not on anything for this currently. Add hydralazine PRN COPD- On albuterol. added duonebs for now. Breast Cancer- Hx of BRCA. Chronic pain- continue home vicodin PRN PPX- Lovenox Fluids-None Lytes-WNL Nutrition- regular Cor- Full dispo- inpatient Subjective: Feels SOB. no cp. volume status is improving Objective: Vital Signs Temp Pulse Resp BP Pulse Ox 36.8 C 71 17 150/51 H 88 L 07/20/18 07:25 07/20/18 10:18 07/20/18 10:18 07/20/18 10:18 07/20/18 10:18 Laboratory Results 07/20/18 03:20 07/20/18 03:20 07/19/18 07/20/18 07/21/18 05:59 05:59 05:59 Intake Total 1140 450 Output Total 1100 2050 950 Balance 40 -1600 -950 PT 15.7 SEC (12.0-15.0) H 07/18/18 17:55 INR 1.23 (0.83-1.16) H 07/18/18 17:55 - Physical Exam Constitutional: no apparent distress Eyes: PERRL, EOMI Ears, Nose, Mouth, Throat: moist mucous membranes Cardiovascular: regular rate and rhythym Respiratory: no respiratory distress, reduced air movement, expiratory wheeze Gastrointestinal: normoactive bowel sounds Skin: warm Neurologic: AAOx3 Psychiatric: interacting appropriately, not anxious, not encephalopathic Lymph, Heme, Immunologic: No petechiae ICD10 Worksheet Patient Problems: Problems Problem Status Onset CAD (coronary artery disease) Acute Hypoxia Acute Traumatic hematoma of right wrist Acute
[2018-07-20] MEDS ORDERED: BISACODYL 10 MG SUPP PR PRN (13:48)
[2018-07-20] MEDS ORDERED: POLYETHYLENE GLYCOL 3350 17 GM PKT PO PRN (13:48)
[2018-07-20] MEDS ORDERED: LACTULOSE 20 GM/30 ML UDCUP PO PRN (13:48)
--- NOTE | 2018-07-20 14:47 | ASMTCMCOM ---
CM Note CM Note Notes: Pts case discussed in tx rounds. Pt will most likely d/c over the weekend. Pt is still volume overloaded. Updates sent to [facility]. CM to follow. Plan: [facility]; PT, RN Date Signed: 07/20/2018 02:47 PM Electronically Signed By:TU Montes De Oca
[2018-07-20] MEDS: FUROSEMIDE 20 MG/2 ML VIAL IVP SCH (16:12)
[2018-07-20] MEDS ORDERED: MAGNESIUM SULF 1 GM/DEXTROSE 100 ML IV ONE (16:29)
[2018-07-20] MEDS: ASPIRIN EC 81 MG TAB PO SCH (16:59)
[2018-07-20] MEDS: SENNOSIDES/DOCUSATE SODIUM TAB PO SCH (22:22)
[2018-07-20] MEDS: ATORVASTATIN CALCIUM 40 MG TAB PO SCH (22:22)
[2018-07-21] MEDS: HYDROCODONE/APAP 5/325 TAB PO PRN ×2 (03:02→08:56)
[2018-07-21] MEDS: hydrALAZINE 20 MG/ML VIAL IVP PRN (03:06)
[2018-07-21 05:08] LABS: PLATELET COUNT 62 10^3/uL (150-400)
[2018-07-21] MEDS: HYDROCODONE/APAP 10/325 TAB PO SCH ×4 (06:08→20:43)
[2018-07-21] MEDS: ALBUTEROL 3 ML DEYVIAL IH SCH ×3 (06:27→15:43)
--- NOTE | 2018-07-21 08:08 | PDCONSULT ---
Leaded Glass Installer Note: Hematology/oncology consultation note Reason for consultation: Thrombocytopenia History of present illness: Cheyenne is a very pleasant 58-year-old female with a complicated past medical history including early onset vascular disease and COPD alongside history of right-sided triple negative stage I breast cancer who we are seeing for evaluation of thrombocytopenia. She has a history of right-sided stage I breast cancer diagnosed in 2008 treated at the [facility] in [place]. She underwent lumpectomy followed by adjuvant chemotherapy with TC x4 alongside adjuvant radiation. She has been without evidence of disease since that period of time. She also has history of significant vascular disease. She underwent a multi vessel CABG back in the 1980s. She had no bleeding complications post surgery. She also has history of peripheral vascular disease and is status post aorto iliac bypass and fem-fem bypass. [facility] for symptoms of erythema of the left lower extremity. She had a CT angiogram this concerning for possible distal thrombosis. She has since been treated for cellulitis with antibiotics. We are being consulted for evaluation for thrombocytopenia. She currently denies any bleeding such as epistaxis, easy bruising, melena, hematochezia, hematuria. In looking back at her history she has had low level thrombocytopenia for quite sometime in the 40-60 range. She has had no other cytopenias on her previous CBCs. Past medical and surgical history: Right-sided invasive lobular cancer, stage I, triple negative, status post right -sided lumpectomy adjuvant radiation and chemotherapy Peripheral vascular disease Coronary artery disease Fem-fem bypass CABG Carotid end arterectomy Left nephrectomy Family history: Mother had coronary artery disease in her 50s. No other cancers or hematologic diseases in the family. Social history: She has a 20 pack-year history of smoking but quit in 2010. She does not drink any alcohol. Allergies: Penicillin Outside medications: Reviewed in EMR Review of systems: 12 point review systems was done and was otherwise negative Physical examination: Vital signs were reviewed General: Pleasant-appearing female in no acute distress pleasant conversant HEENT oropharynx is clear, extraocular movements are intact, nasal cannula in place Cardiovascular: Regular rate and rhythm Pulmonary: Clear to auscultation bilaterally Abdomen: Soft nontender nondistended bowel sounds are present no hepatosplenomegaly appreciated Skin: Slight bruising noted in the left arm otherwise no significant ecchymosis. Extremities: Discoloration noted of the bilateral lower extremities. Left lower extremity bandaged and erythematous. Pulses are intact Neuro: Moving all extremities WBC 3.83 10^3/uL (3.80-9.50) 07/21/18 04:06 RBC 5.43 10^6/uL (4.18-5.33) H 07/21/18 04:06 Hgb 15.5 g/dL (12.6-16.3) 07/21/18 04:06 Hct 50.0 % (38.0-47.0) H 07/21/18 04:06 MCV 92.1 fL (81.5-99.8) 07/21/18 04:06 MCH 28.5 pg (27.9-34.1) 07/21/18 04:06 MCHC 31.0 g/dL (32.4-36.7) L 07/21/18 04:06 RDW 16.4 % (11.5-15.2) H 07/21/18 04:06 Plt Count 62 10^3/uL (150-400) L 07/21/18 04:06 MPV 11.7 fL (8.7-11.7) 07/21/18 04:06 Neut % (Auto) 87.4 % (39.3-74.2) H 07/21/18 04:06 Lymph % (Auto) 9.7 % (15.0-45.0) L 07/21/18 04:06 [place] % (Auto) 2.6 % (4.5-13.0) L 07/21/18 04:06 Eos % (Auto) 0.0 % (0.6-7.6) L 07/21/18 04:06 Baso % (Auto) 0.0 % (0.3-1.7) L 07/21/18 04:06 Nucleat RBC Rel Count 0.0 % (0.0-0.2) 07/21/18 04:06 Absolute Neuts (auto) 3.35 10^3/uL (1.70-6.50) 07/21/18 04:06 Absolute Lymphs (auto) 0.37 10^3/uL (1.00-3.00) L 07/21/18 04:06 Absolute Monos (auto) 0.10 10^3/uL (0.30-0.80) L 07/21/18 04:06 Absolute Eos (auto) 0.00 10^3/uL (0.03-0.40) L 07/21/18 04:06 Absolute Basos (auto) 0.00 10^3/uL (0.02-0.10) L 07/21/18 04:06 Absolute Nucleated RBC 0.00 10^3/uL (0-0.01) 07/21/18 04:06 Immature Gran % 0.3 % (0.0-1.1) 07/21/18 04:06 Immature Gran # 0.01 10^3/uL (0.00-0.10) 07/21/18 04:06 RBC/WBC/PLT Morphology TNP 07/21/18 04:06 Platelet Estimate TNP 07/21/18 04:06 PT 15.7 SEC (12.0-15.0) H 07/18/18 17:55 INR 1.23 (0.83-1.16) H 07/18/18 17:55 APTT 36.6 SEC (23.0-38.0) 07/16/18 12:46 Sodium 134 mEq/L (135-145) L 07/21/18 04:06 Potassium 4.0 mEq/L (3.5-5.2) 07/21/18 04:06 Chloride 97 mEq/L (97-110) 07/21/18 04:06 Carbon Dioxide 30 mEq/l (22-31) 07/21/18 04:06 Anion Gap 7 mEq/L (6-14) 07/21/18 04:06 BUN 26 mg/dL (7-23) H 07/21/18 04:06 Creatinine 0.8 mg/dL (0.6-1.0) 07/21/18 04:06 Estimated GFR > 60 07/21/18 04:06 Glucose 213 mg/dL (70-100) H 07/21/18 04:06 Calcium 8.1 mg/dL (8.5-10.4) L 07/21/18 04:06 Phosphorus 4.2 mg/dL (2.5-4.5) 07/19/18 08:10 Magnesium 2.0 mg/dL (1.6-2.3) 07/21/18 04:06 Total Bilirubin 1.5 mg/dL (0.1-1.4) H 07/18/18 03:45 AST 24 IU/L (14-46) 07/18/18 03:45 ALT 19 IU/L (9-52) 07/18/18 03:45 Alkaline Phosphatase 84 IU/L (38-126) 07/18/18 03:45 C-Reactive Protein 16.1 mg/L (<10.0) H 07/16/18 12:46 NT-Pro-B Natriuret Pep 7620 pg/mL (0-125) H 07/20/18 03:20 Total Protein 5.4 g/dL (6.3-8.2) L 07/18/18 03:45 Albumin 2.5 g/dL (3.5-5.0) L 07/18/18 03:45 Vancomycin Trough 11.7 mcg/mL (5.0-20.0) 07/19/18 08:10 Assessment and plan: Cheyenne is a 58-year-old female with history of right-sided breast cancer and significant early-onset vascular disease who we are seeing for evaluation for thrombocytopenia. 1. Thrombocytopenia: I reviewed her records dating back to 2008 and 2010 where she had a normal platelet count. Most recently in the early part of 2017 she began to have some thrombocytopenia. In August of 2017 her platelet count was 71 and a since fluctuated in the 50s to 70s. Today her platelet count is in the 60s. She has no schistocytes on peripheral smear. She has no evidence of DIC. She has no evidence of clumping. I do not think that this is medication related. She has no hepatosplenomegaly or evidence of cirrhosis. 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 My only concern is her prior exposure to chemotherapy. I will have her follow up in our clinic in 2-3 weeks after discharge. We can review her CBC at that time. She might need a bone marrow biopsy to rule out any dysplastic issues within her marrow. -outpatient follow-up with me will be arranged in about 2-3 weeks at [facility] in [place]. 2. Peripheral vascular disease: Being followed by Cardiology. 3. Cellulitis: Currently receiving antibiotics. All questions were answered. She voiced understanding of the plan.
[2018-07-21] MEDS: predniSONE 20 MG TAB PO SCH (08:48)
[2018-07-21] MEDS: FUROSEMIDE 20 MG/2 ML VIAL IVP SCH ×2 (08:48→15:43)
[2018-07-21] MEDS: diphenhydrAMINE 25 MG CAP PO PRN ×3 (08:48→22:53)
[2018-07-21] MEDS: SENNOSIDES/DOCUSATE SODIUM TAB PO SCH (08:48)
[2018-07-21] MEDS: VANCOMYCIN HCL/NORMAL SALINE 250 ML IV SCH (08:48)
[2018-07-21] MEDS: HYDROCORTISONE 1% CREAM TP SCH ×2 (08:49→22:56)
[2018-07-21] MEDS: ASPIRIN EC 81 MG TAB PO SCH (08:49)
[2018-07-21] MEDS: GABAPENTIN 300 MG CAP PO SCH ×3 (08:49→20:42)
--- NOTE | 2018-07-21 15:17 | HOSPPROG ---
Hospitalist Progress Note Assessment/Plan: cellulitis (PCN allergy) - improving -cont Vancomycin for now -ID consult in am to weigh in on atbx, ?change to cefazolin Acute diastolic HF with anasarca - Echo showed diastolic dysfunction, mod MR, TR , hypokinesis (unclear if old). CTA (pers reviewed/interp) with anasarca and b/ l bilateral effusions. Wt down 2 kg, still volume overloaded. -cont diuresis with IV Lasix -follow I&O's, daily weights -check LE us to r/o dvt -cardiology consult given WMA PVD - s/p aorto bi-iliac bypass. CTA c/w R Limb aortic iliac bypass occlusion but appears chronic. -vascular surgery following, no interventions planned -cont Aspirin, statin. May benefit from Plavix Acute on chronic respiratory failure - 2/2 COPD, on 3 L -cont steroid burst Thrombocytopenia- heme consult appreciated -outpt heme/onc f/u CAD- History of CABG. Continue asa, statin. -cardiology consult today, likely warrants further risk stratification HLD- on lipitor. cont for now. HTN- Not on anything for this currently. Add hydralazine PRN COPD- add scheduled duonebs, cont prn albuterol nebs -cont prednisone burst H/O Breast Cancer- Hx of BRCA. -outpt f/u Chronic pain- continue home vicodin PRN PPX- Lovenox Fluids-None Lytes-WNL Nutrition- regular Cor- Full dispo- inpatient Subjective: Pt feels better. Says less redness and pain in LLE. No CP, but a bit SOB with activity. She still has increased O2 requirement. No fevers. Objective: Vital Signs Temp Pulse Resp BP Pulse Ox 36.9 C 85 18 147/55 H 90 L 07/21/18 11:39 07/21/18 11:39 07/21/18 11:39 07/21/18 11:39 07/21/18 11:39 Microbiology 07/16/18 12:46 Blood Culture - Final Blood Laboratory Results 07/21/18 04:06 07/21/18 04:06 07/20/18 07/21/18 07/22/18 05:59 05:59 05:59 Intake Total 450 900 Output Total 2049 1974 Balance -1600 -1075 PT 15.7 SEC (12.0-15.0) H 07/18/18 17:55 INR 1.23 (0.83-1.16) H 07/18/18 17:55 - Physical Exam Constitutional: no apparent distress Eyes: PERRL Ears, Nose, Mouth, Throat: moist mucous membranes Cardiovascular: regular rate and rhythym Respiratory: no respiratory distress, inspiratory crackles Gastrointestinal: normoactive bowel sounds, soft, non-tender abdomen Musculoskeletal: full muscle strength, other (B/L 2+ LE edema with LLE erythema and surrounding petechial lesions, non-blanchable) Neurologic: AAOx3 Psychiatric: interacting appropriately ICD10 Worksheet Patient Problems: Problems Problem Status Onset CAD (coronary artery disease) Acute Hypoxia Acute Traumatic hematoma of right wrist Acute
[2018-07-21] MEDS ORDERED: ALBUTEROL 3 ML DEYVIAL IH PRN (15:51)
[2018-07-21] MEDS: IPRATROPIUM/ALBUTEROL 3 ML DEYVIAL IH SCH ×2 (16:22→20:56)
[2018-07-21] MEDS: ATORVASTATIN CALCIUM 40 MG TAB PO SCH (20:44)
[2018-07-22] MEDS: SENNOSIDES/DOCUSATE SODIUM TAB PO SCH ×3 (00:59→20:37)
[2018-07-22] MEDS: IPRATROPIUM/ALBUTEROL 3 ML DEYVIAL IH SCH ×4 (05:39→21:09)
[2018-07-22] MEDS: HYDROCODONE/APAP 10/325 TAB PO SCH ×4 (05:49→20:35)
[2018-07-22] MEDS: diphenhydrAMINE 25 MG CAP PO PRN ×2 (07:20→20:34)
--- NOTE | 2018-07-22 07:22 | HOSPPROG ---
Hospitalist Progress Note Assessment/Plan: RLE cellulitis (PCN allergy) - improving -on vancomycin, day 6 -ID consult to weigh in on atbx, ?change to cefazolin ICM / Acute HF with anasarca - Echo showed diastolic dysfunction, mod MR, TR, hypokinesis (present on prior cath 10/2017). CTA with anasarca and b/l bilateral effusions. Still volume overloaded. LE u/s neg for DVT. -cont diuresis with IV Lasix, increase to 40 bid -follow I&O's, daily weights -cardiology consult today PVD - s/p aorto bi-iliac bypass. CTA c/w R Limb aortic iliac bypass occlusion but appears chronic. -vascular surgery following, no interventions planned -cont Aspirin, statin. May benefit from Plavix Acute on chronic respiratory failure - 2/2 COPD, on 3 L -cont steroid burst Thrombocytopenia- heme consult appreciated -outpt heme/onc f/u CAD- History of CABG. Continue asa, statin. -cardiology consult today, may need further risk stratification HLD- on lipitor. cont for now. HTN- Not on anything for this currently. Add hydralazine PRN COPD- add scheduled duonebs, cont prn albuterol nebs -cont prednisone burst, day 3/5 H/O Breast Cancer- Hx of BRCA. -outpt f/u Chronic pain- continue home vicodin PRN PPX- Lovenox Fluids-None Lytes-WNL Nutrition- regular Cor- Full dispo- inpatient, anticipated dc in 2-3 days, requiring ongoing diuresis Subjective: Pt feels ok. Still a little SOB with activity. No CP. Reports less LE swelling. No fevers/chills. Objective: Vital Signs Temp Pulse Resp BP Pulse Ox 36.3 C 65 16 152/62 H 97 07/22/18 04:00 07/22/18 05:39 07/22/18 05:39 07/22/18 04:00 07/22/18 05:39 Microbiology 07/16/18 17:42 Blood Culture - Final Blood 07/16/18 12:46 Blood Culture - Final Blood Laboratory Results 07/21/18 04:06 07/21/18 04:06 07/21/18 07/22/18 07/23/18 05:59 05:59 05:59 Intake Total 900 1270 Output Total 1974 1100 Balance -1075 170 PT 15.7 SEC (12.0-15.0) H 07/18/18 17:55 INR 1.23 (0.83-1.16) H 07/18/18 17:55 - Physical Exam Constitutional: no apparent distress Eyes: PERRL Ears, Nose, Mouth, Throat: moist mucous membranes Cardiovascular: regular rate and rhythym Respiratory: no respiratory distress, inspiratory crackles Gastrointestinal: normoactive bowel sounds, soft, non-tender abdomen Skin: warm Musculoskeletal: full muscle strength, other (b/l 1+ LE pitting edema, improving , RLE with decreased erythema, still with petechial changes on anterior tibial region, extremities warm) Neurologic: AAOx3 Psychiatric: interacting appropriately ICD10 Worksheet Patient Problems: Problems Problem Status Onset CAD (coronary artery disease) Acute Hypoxia Acute Traumatic hematoma of right wrist Acute
[2018-07-22] MEDS: FUROSEMIDE 20 MG/2 ML VIAL IVP SCH ×2 (08:53→15:27)
[2018-07-22] MEDS: ASPIRIN EC 81 MG TAB PO SCH (08:53)
[2018-07-22] MEDS: GABAPENTIN 300 MG CAP PO SCH ×3 (08:53→20:34)
[2018-07-22] MEDS: predniSONE 20 MG TAB PO SCH (08:53)
[2018-07-22] MEDS: HYDROCORTISONE 1% CREAM TP SCH ×2 (08:54→20:35)
--- NOTE | 2018-07-22 10:45 | PDCARPN ---
Cardiology Progress Note Chief Complaint: Recent admission from the office with likely CHF exacerbation Assessment/Plan: Assessment: Patient is a 58 y/o female, well known to [facility] (and seen on 07-16-[address] Robby Ron) with bilateral lower extremity swelling and shortness of breath ( oxygen sats in the office were noted to be 60-70%). Past history remarkable for COPD (on supplemental oxygen), HLP (on statins), left nephrectomy (with renal artery occlusion in the remote past), and CAD s/p CABG (3V, 1997) with angiography in 2018 revealing a LM of 40%, occlusion of the mid LAD. The rSVG to the LAD was patent. LVEF was noted to be 40-45% by echocardiography in past (recent echo from 07-17-18 with LVEF of 50%, mod MR, and RVSP of 47 mm Hg). Extensive PVD history (1979 aortobifem; 2010 right iliofemoral endarterctomy; 2017 femfem bypass with left femoral endarterectomy and right femoral profundoplasty. RCEA in past as well. Over this admission, the patient has done well with diuresis. Lower extremity swelling has improved (dramatically according to the patient). Vascular surgery has followed the patient while she has been in house. Ongoing work to determine which antibiotic coverage is best for the left lower extremity cellulitis that has been noted. Sats today are 89- 90% on supplemental oxygen. Weights are down about 2 kg since admission (as per the I/O documentation). No cardiovascular complaints of chest pains or pressure. Breathing is feeling much better since her admission. Plan: (1) Would have ID assistance with both specific antibiotic choice and duration of therapy given her past history (2) Would maintain therapy on ASA and add Plavix given her extensive CAD and PVD history (3) Maintain therapy on statins for HLP with CAD/CABG/PVD histories (maintain annual assessment of cholesterol and LFTs) (4) Supplemental oxygen therapy should continue (5) Maintain therapy on lasix as at present given the response that has been noted - close following of renal status given history of nephrectomy (6) Elevation of bilateral lower extremities should continue Subjective: No cardiovascular complaints today. Patient is feeling better than she was at the time of admission Objective: Vital Signs (8 Hrs) Temp Pulse Resp BP Pulse Ox 07/22/18 08:00 36.7 C 61 14 153/57 H 92 07/22/18 05:39 65 16 97 07/22/18 04:00 36.3 C 73 20 152/62 H 94 Intake/Output (24 Hrs) 07/21/18 07/22/18 07/23/18 05:59 05:59 05:59 Intake Total 900 1270 Output Total 1974 1099 Balance -1075 170 Intake: Oral (ml) 900 1020 IV Infused (ml) 250 Vancomycin HCl/Normal 250 Saline 250 ml @ 250 mls/ hr IV Q24H [place] Rx#: [id number] Output: Urine (ml) 1974 1099 Bedside Commode 125 Toilet 1850 1100 Other: Weight 51.9 kg Intake Quantity Yes Sufficient Output Comment Toilet noncompliant urine I&O Number of Voids Toilet 1 1 1 Number of Stools Toilet 1 1 1 Result Diagrams: 07/22/18 08:45 07/22/18 08:45 EKG: from 07-16-18 with normal sinus rhythm Telemetry: sinus rhythm Echocardiogram: low normal LVEF (50%) with mod MR and RVSP of 47 mm Hg - Physical Exam Constitutional: WDWN, healthy appearing, no apparent distress Eyes: PERRL, EOMI Ears, Nose, Mouth, Throat: moist mucous membranes Cardiovascular: regular rate and rhythm, systolic murmur (II/ REYNALDO), pulses symmetric bilat, No jugular vein distention Peripheral Pulses: 1+: dorsalis-pedis (R), dorsalis-pedis (L) Respiratory: clear to auscultate bilat, no crackles, reduced air movement Gastrointestinal: normoactive bowel sounds Skin: warm, erythema, other (trace lower extermity edema noted. There is an ongoing ulcer to the left lower extremity) Musculoskeletal: no muscular tenderness Neurologic: AAOx3, CN II-XII grossly intact Psychiatric: cooperative, interactive, following commands ICD10 Worksheet Patient Problems: Problems Problem Status Onset CAD (coronary artery disease) Acute Hypoxia Acute Traumatic hematoma of right wrist Acute
[2018-07-22] MEDS: VANCOMYCIN HCL/NORMAL SALINE 250 ML IV SCH (11:36)
--- NOTE | 2018-07-22 15:20 | GCON ---
INFECTIOUS DISEASE CONSULTATION REFERRING PHYSICIAN: Alma Delia Dias MD REASON FOR CONSULTATION: Left lower extremity cellulitis. Query step-down p.o. antibiotic therapy for cellulitis. HISTORY OF PRESENT ILLNESS: A 58-year-old woman with extensive vascular disease including coronary artery disease, peripheral vascular disease, carotid disease, and has had multiple interventions in the past to manage these disease processes, who is admitted to the hospital 07/16/2018, with progressive lower extremity edema and left lower extremity cellulitis. The patient was admitted to the hospital and started on diuretics as well as IV vancomycin 1 g IV daily. The patient reports that she has had significant improvement of her bilateral lower extremity edema. The left lower extremity is 70% improved; the right, 50 % improved. The patient notes that about a week and a half ago, she developed a wound on her mid verdin. Unknown if this was traumatic. She denies pain associated with the wound at any point, but does describe associated itching, and she has excoriated the area fairly extensively. She states that the lotion that they have been applying in the hospital and Benadryl have helped itching. She also reports that today that when she looks at the wound, it is smaller and less dark. Further she endorses that her left leg was also red in color and that has improved. Her right lower extremity is chronically red. She denies any fevers, chills, night sweats. No nausea, vomiting, diarrhea. No rashes. PAST MEDICAL HISTORY: COPD on chronic supplemental oxygen, hyperlipidemia on statin, left nephrectomy due to renal artery occlusion in 2008, coronary artery disease status post 3-vessel CABG, peripheral vascular disease with a history of aortobifem, 2010 right ileo femoral endarterectomy, 2018 fem-fem bypass with left femoral endarterectomy and a right femoral profundoplasty. ALLERGIES: Penicillin. As a child, she had a mild rash. Therefore, doubt this is a true allergy. FAMILY HISTORY: Reviewed and noncontributory. SOCIAL HISTORY: Former tobacco. 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 She occasionally uses marijuana. MEDS: Vancomycin 1gm IV daily. Prednisone 40mg PO daily REVIEW OF SYSTEMS: A complete 10-point review of systems was performed and is negative except as mentioned in the HPI. PHYSICAL EXAM: VITAL SIGNS: The patient has been afebrile throughout her entire hospital course. Temperature 36.6, blood pressure 154/67, heart rate 77. GENERAL: This is a very pleasant woman in no respiratory distress, somewhat tearful. HEENT: No conjunctival hemorrhage. No scleral icterus. Oropharynx slightly dry. No thrush. No oral ulcerations. Fair dentition. NECK: Supple. CARDIOVASCULAR: Regular rate. CHEST: She had left lower lung field crackles but decreased air movement throughout. ABDOMEN: Soft, nontender. EXTREMITIES: The patient had 1 to 2+ pitting edema of her right lower extremity with chronic rubor. Pulses were nonpalpable bilaterally. Her left lower extremity showed anterior excoriations with an about 2 x 1.5 cm wound that was purplish. No obvious erythema. Both feet were cool to touch. Edema in the left lower extremity was less so than the right with trace to 1+. NEUROLOGIC: She was alert and oriented x4. Moving all 4 extremities equally. SKIN: No rashes. LABORATORY: White count 3.8, hematocrit 50, platelets of 62, 87% neutrophils. Reviewed vancomycin trough today with patient's last dose. Creatinine today is 0.8. LFTs on admission were normal except for a low total protein, albumin 5.4 and 2.5. IMAGING: The patient had a CTA of her lower extremities, which shows a chronically occluded limb of the aortoiliac, but the left femoral and fem-fem is open. Surgical interpretation: No additional intervention needed. DVT study was negative bilaterally. ASSESSMENT AND PLAN: This is a 58-year-old woman with extensive vascular disease including peripheral vascular disease, who by report had evidence of left lower extremity cellulitis, notably absence of leukocytosis and fever during hospitalization. This is no clinically evident today as the patient has no signs of cellulitis on exam. Continue wound care, may benefit from being followed by outpatient wound care clinic. In addition to wound LLE, she has exam findings showing right worse than left lower extremity changes consistent with peripheral vascular disease. The patient has received 5 days of IV vancomycin. Would complete a course of therapy with 2 more days of p.o. Keflex as she has no history of MRSA and lack of purulent drainage a bit more suggestive of disease due to streptococcus. Orders were placed. Her penicillin history is not consistent with true allergy. Call ID for additional questions. Thank you for this consultation. /[id number]/MODL MTDD
[2018-07-22] MEDS: CLOPIDOGREL BISULFATE 75 MG TAB PO SCH (15:27)
[2018-07-22] MEDS: ATORVASTATIN CALCIUM 40 MG TAB PO SCH (20:34)
[2018-07-22] MEDS: hydrALAZINE 20 MG/ML VIAL IVP PRN (23:25)
[2018-07-23] MEDS: IPRATROPIUM/ALBUTEROL 3 ML DEYVIAL IH SCH ×4 (05:23→21:01)
[2018-07-23] MEDS: HYDROCODONE/APAP 10/325 TAB PO SCH ×4 (05:33→21:12)
[2018-07-23] MEDS ORDERED: POTASSIUM CL 20 MEQ TAB PO ONE (07:05)
[2018-07-23] MEDS: FUROSEMIDE 20 MG/2 ML VIAL IVP SCH (08:49)
[2018-07-23] MEDS: ASPIRIN EC 81 MG TAB PO SCH (08:50)
[2018-07-23] MEDS: CEPHALEXIN 500 MG CAP PO SCH ×3 (08:50→21:12)
[2018-07-23] MEDS: predniSONE 20 MG TAB PO SCH (08:51)
[2018-07-23] MEDS: CLOPIDOGREL BISULFATE 75 MG TAB PO SCH (08:51)
[2018-07-23] MEDS: GABAPENTIN 300 MG CAP PO SCH ×3 (08:51→21:12)
[2018-07-23] MEDS: HYDROCORTISONE 1% CREAM TP SCH ×2 (08:52→21:14)
[2018-07-23] MEDS: SENNOSIDES/DOCUSATE SODIUM TAB PO SCH ×2 (08:57→21:22)
[2018-07-23] MEDS: diphenhydrAMINE 25 MG CAP PO PRN ×2 (09:04→21:22)
--- NOTE | 2018-07-23 09:35 | HOSPPROG ---
Hospitalist Progress Note Assessment/Plan: RLE cellulitis (PCN allergy) - improving -atbx stepped down from vanco to keflex (1 more day) ICM / Acute HF with anasarca - Echo showed diastolic dysfunction, mod MR, TR, hypokinesis (present on prior cath 10/2017). CTA with anasarca and b/l bilateral effusions. LE u/s neg for DVT. Still volume overloaded, but much improved. Wt down 4 kg to from 54 to 50 kg, but baseline appears closer to 46 kg. -cont diuresis, decrease to once daily Lasix with BUN on the rise, change to po in am -cxr, bnp in am -follow I&O's, daily weights -cardiology following, appreciate assistance PVD - s/p aorto bi-iliac bypass. CTA c/w R Limb aortic iliac bypass occlusion but appears chronic. -vascular surgery following, no interventions planned -cont Aspirin, statin -add plavix per cardiology recs Acute on chronic respiratory failure - 2/2 COPD and b/l effusions in setting of HF, on 3 L at home, 4 LPM today -cont steroid burst (day 10/05) -cont duonebs qid plus prn albuterol -repeat CXR in am Metabolic alkalosis - likely contraction alkalosis in setting of diuresis -reduce lasix dose as above Thrombocytopenia- heme consult appreciated -outpt heme/onc f/u CAD- History of CABG. Continue asa, statin. HLD- on lipitor. cont for now. HTN- Not on anything for this currently. -hydralazine PRN H/O Breast Cancer- Hx of BRCA. -outpt f/u Chronic pain- continue home vicodin PRN PPX- Lovenox Fluids-None Lytes-WNL Nutrition- regular Cor- Full dispo- inpatient, anticipated dc in 1-2 days, requiring ongoing diuresis Subjective: Pt tearful this am, wants to go home. Says breathing is improved. LE edema also improved. No CP or SOB at rest. Not sleeping well. Good oral intake. Objective: Vital Signs Temp Pulse Resp BP Pulse Ox 36.8 C 67 18 144/54 H 93 07/23/18 08:00 07/23/18 08:00 07/23/18 08:00 07/23/18 08:00 07/23/18 08:00 Microbiology 07/16/18 17:42 Blood Culture - Final Blood Laboratory Results 07/22/18 08:45 07/23/18 04:41 07/22/18 07/23/18 07/24/18 05:59 05:59 05:59 Intake Total 1270 650 Output Total 1100 3400 Balance 170 -2750 PT 15.7 SEC (12.0-15.0) H 07/18/18 17:55 INR 1.23 (0.83-1.16) H 07/18/18 17:55 - Physical Exam Constitutional: no apparent distress Eyes: PERRL Ears, Nose, Mouth, Throat: moist mucous membranes Cardiovascular: regular rate and rhythym Respiratory: no respiratory distress, inspiratory crackles Gastrointestinal: normoactive bowel sounds, soft, non-tender abdomen Skin: warm Musculoskeletal: full muscle strength, other (b/l LE edema much improved, RLE erythema better, extremities warm) Neurologic: AAOx3 Psychiatric: interacting appropriately ICD10 Worksheet Patient Problems: Problems Problem Status Onset CAD (coronary artery disease) Acute Hypoxia Acute Traumatic hematoma of right wrist Acute
--- NOTE | 2018-07-23 09:51 | HOSPPROG ---
Hospitalist Progress Note Assessment/Plan: RLE cellulitis (PCN allergy) - improving -atbx stepped down from vanco to keflex (1 more day) ICM / Acute HF with anasarca - Echo showed diastolic dysfunction, mod MR, TR, hypokinesis (present on prior cath 10/2017). CTA with anasarca and b/l bilateral effusions. LE u/s neg for DVT. Still volume overloaded. Wt down 4 kg to from 54 to 50 kg, but baseline appears closer to 46 kg. -cont diuresis, decrease to once daily Lasix with BUN on the rise, change to po in am -follow I&O's, daily weights -cardiology following, appreciate assistance PVD - s/p aorto bi-iliac bypass. CTA c/w R Limb aortic iliac bypass occlusion but appears chronic. -vascular surgery following, no interventions planned -cont Aspirin, statin -add plavix per cardiology recs Acute on chronic respiratory failure - 2/2 COPD, on 3 L -cont steroid burst (day 10/05) -cont duonebs qid plus prn albuterol Metabolic alkalosis - likely contraction alkalosis in setting of diuresis -reduce lasix dose as above Thrombocytopenia- heme consult appreciated -outpt heme/onc f/u CAD- History of CABG. Continue asa, statin. -cardiology consult today, may need further risk stratification HLD- on lipitor. cont for now. HTN- Not on anything for this currently. -hydralazine PRN H/O Breast Cancer- Hx of BRCA. -outpt f/u Chronic pain- continue home vicodin PRN PPX- Lovenox Fluids-None Lytes-WNL Nutrition- regular Cor- Full dispo- inpatient, anticipated dc in 1-2 days, requiring ongoing diuresis Objective: Vital Signs Temp Pulse Resp BP Pulse Ox 36.8 C 67 18 144/54 H 93 07/23/18 08:00 07/23/18 08:00 07/23/18 08:00 07/23/18 08:00 07/23/18 08:00 Microbiology 07/16/18 17:42 Blood Culture - Final Blood Laboratory Results 07/22/18 08:45 07/23/18 04:41 07/22/18 07/23/18 07/24/18 05:59 05:59 05:59 Intake Total 1270 650 Output Total 1100 3400 Balance 170 -2750 PT 15.7 SEC (12.0-15.0) H 07/18/18 17:55 INR 1.23 (0.83-1.16) H 07/18/18 17:55 ICD10 Worksheet Patient Problems: Problems Problem Status Onset CAD (coronary artery disease) Acute Hypoxia Acute Traumatic hematoma of right wrist Acute
--- NOTE | 2018-07-23 10:06 | SOAPPROG ---
SOAP Progress Note Assessment/Plan: Assessment: 1. Peripheral vascular disease. She has an extensive peripheral vascular disease history. In the she had an aortobifem procedure. This was followed in 2010 with a right iliofemoral endarterectomy and subsequently in December of 2017 with a fem-fem bypass associated with a left femoral endarterectomy and a right femoral profundoplasty. Furthermore, she has had a previous right carotid endarterectomy. Fortunately, the recent CTA of her lower extremities indicated that her most recent fem-fem bypass was patent. Additionally, she has well dopplerable pulses in her lower extremities and based on the appearance today has good perfusion. 2. Coronary artery disease. She has had previous coronary artery bypass graft surgery which was done in 1997 following a myocardial infarction. At that time she had 3 vessel bypass performed. Last year coronary angiography was performed. She had a 40% left main lesion, occlusion of the mid LAD, ramus intermedius and right coronary arteries and luminal irregularities in the circumflex. She had a patent saphenous vein graft to the LAD. Ejection fraction was 40-45%. This appears to be stable at the present time. She is not experiencing symptoms of angina. Her ejection fraction this admission by echocardiography was 50%. 3. Valvular heart disease. By echocardiography she has moderate mitral and mild -to-moderate tricuspid regurgitation. Her estimated RVSP was 47 mmHg. 4. COPD. This is oxygen dependent. At baseline she is on 3 L nasal cannula. 5. Chronic renal insufficiency. She has a single kidney. 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 6. Lower extremity cellulitis. Currently on antibiotics being followed by infectious disease. Generally, she has shown significant improvement since her initial hospitalization. She still appears to be mildly volume overloaded. Her electrolytes would indicate that she is gradually developing a contraction alkalosis. Plan: 1. She has already received a single dose of IV Lasix today. Following that, I would avoid additional diuretics today. 2. She will have a chemistry panel drawn tomorrow. 3. I would also like her to have a chest x-ray tomorrow to evaluate her pleural effusions. 4. Will continue her other medications. 07/23/18 10:20 Subjective: She states that she is doing much better than at the time of her admission to the hospital. Her breathing has improved substantially. Her legs are feeling much better. She has much less lower extremity edema. She notes no chest pain or chest pressure. Objective: Vital Signs Temp Pulse Resp BP Pulse Ox 36.8 C 67 18 144/54 H 93 07/23/18 08:00 07/23/18 08:00 07/23/18 08:00 07/23/18 08:00 07/23/18 08:00 Microbiology 07/16/18 17:42 Blood Culture - Final Blood Laboratory Results 07/22/18 08:45 07/23/18 04:41 07/22/18 07/23/18 07/24/18 05:59 05:59 05:59 Intake Total 1270 650 Output Total 1100 3400 Balance 170 -2750 PT 15.7 SEC (12.0-15.0) H 07/18/18 17:55 INR 1.23 (0.83-1.16) H 07/18/18 17:55 Physical Exam - Physical Exam General Appearance: other (Chronically ill) Neck: non-tender, full range of motion Respiratory: lungs clear Cardiac/Chest: regular rate, rhythm, JVD (To the mid neck) Abdomen: non-tender ICD10 Worksheet Patient Problems: Problems Problem Status Onset CAD (coronary artery disease) Acute Hypoxia Acute Traumatic hematoma of right wrist Acute
--- NOTE | 2018-07-23 11:01 | WOCRNPDOC ---
WOCRN Advanced Assessment Note - Skin Integrity Problem, Advanced Assess Left Anterior Lower Leg Dressing Type: Kerlix, Mepilex Transfer Dressing Description: Intact, Shadowed Exudate Amount: Minimal Exudate Characteristic(s): Serosanguinous Integumentary Issue Intervention: Dressing Removed Ladonna Wound Tissue: Erythema, Hemosiderin Staining, Rubor (non dependent), Hair Loss, Painful/Tender Wound Bed Constitution: Mixed Loose & Adhered Slough/Eschar (100%) Wound Edges: Attached, Well Defined Site Measurement - Head-to-Toe Length X Width X Depth (cm): 2.21x1.8x0.1 Skin Integrity Problem Comment: Top of wound is covered by thick layer of loose slough/eschar. Removed mechanically. Education with patient about need to clean wound well to remove necrotic tissue. Will initiate iodosorb dressing for debridement. Patient to follow up at outpatient wound healing center. Norma MENARD in room for care. Wound care will follow. Brochure to outpatient [facility] provided.
--- NOTE | 2018-07-23 15:10 | ASMTCMCOM ---
CM Note CM Note Notes: 07/23/2018 Case Management Note Discussed with MD this morning. Anticipating d/c in next 1 - 2 days. Pt to follow up as wound care clinic. [facility] visited in person. Case Management d/c poc: [facility] RN PT Case Management to follow. Date Signed: 07/23/2018 03:09 PM Electronically Signed By:Ariana Small RN
[2018-07-23] MEDS: hydrALAZINE 20 MG/ML VIAL IVP PRN (17:11)
[2018-07-23] MEDS: ATORVASTATIN CALCIUM 40 MG TAB PO SCH (21:12)
[2018-07-24] MEDS: hydrALAZINE 20 MG/ML VIAL IVP PRN (00:48)
[2018-07-24] MEDS: IPRATROPIUM/ALBUTEROL 3 ML DEYVIAL IH SCH ×4 (05:11→21:21)
[2018-07-24] MEDS: HYDROCODONE/APAP 10/325 TAB PO SCH ×4 (05:17→20:11)
[2018-07-24] MEDS: diphenhydrAMINE 25 MG CAP PO PRN ×2 (06:10→15:25)
[2018-07-24] MEDS: GABAPENTIN 300 MG CAP PO SCH ×3 (08:01→20:14)
[2018-07-24] MEDS: CEPHALEXIN 500 MG CAP PO SCH (08:01)
[2018-07-24] MEDS: CLOPIDOGREL BISULFATE 75 MG TAB PO SCH (08:01)
[2018-07-24] MEDS: ASPIRIN EC 81 MG TAB PO SCH (08:01)
[2018-07-24] MEDS: predniSONE 20 MG TAB PO SCH (08:01)
[2018-07-24] MEDS: SENNOSIDES/DOCUSATE SODIUM TAB PO SCH ×2 (08:02→20:13)
[2018-07-24] MEDS: HYDROCORTISONE 1% CREAM TP SCH ×2 (08:02→20:17)
[2018-07-24] MEDS ORDERED: FUROSEMIDE 40 MG TAB PO SCH (09:00)
--- NOTE | 2018-07-24 09:22 | HOSPPROG ---
Hospitalist Progress Note Assessment/Plan: RLE cellulitis (PCN allergy) - improving -completed 7 days atbx ICM / Acute HF with anasarca - Wt down 4 kg to from 54 to 50.8 kg, but baseline appears closer to 46 kg. CXR this am pers reviewed/interp- persistent pulmonary edema/effusions. BNP up to 11K from 7K. Echo showed diastolic dysfunction, mod MR, TR, hypokinesis (present on prior cath 10/2017). CTA with anasarca and b/l bilateral effusions. LE u/s neg for DVT. Still volume overloaded. -received 40 mg po lasix this am, resume IV Lasix starting this afternoon -resume home spironolactone (watch K) -follow I&O's, daily weights -cardiology following, appreciate assistance, will discuss with Dr. Ron, ? Lasix drip PVD - s/p aorto bi-iliac bypass. CTA c/w R Limb aortic iliac bypass occlusion but appears chronic. -vascular surgery following, no interventions planned -cont Aspirin, statin -added plavix per cardiology recs Acute on chronic respiratory failure - 2/2 COPD and b/l effusions in setting of HF, on 3 L at home, 4 LPM today -completed 5 day steroid burst, will d/c prednisone -cont duonebs qid plus prn albuterol Metabolic alkalosis - likely contraction alkalosis in setting of diuresis, improved a bit -follow Thrombocytopenia- heme consult appreciated, plts on the rise -recheck plts in am -outpt heme/onc f/u CAD- History of CABG. Continue asa, statin. HLD- on lipitor. cont for now. HTN- requiring frequent prn hydral -resume home spironolactone as above -cont prn hydral H/O Breast Cancer- Hx of BRCA. -outpt f/u Chronic pain- continue home vicodin PRN PPX- Lovenox deferred with low plts, SCD's, ambulation Cor- Full dispo- cont inpatient, requiring ongoing diuresis Subjective: pt doing ok, acknowledges still a bit SOB. Denies cough, wheezing or fevers. No CP. LE edema is much improved. Taking po well. Ambulating Objective: Vital Signs Temp Pulse Resp BP Pulse Ox 36.7 C 59 L 18 162/71 H 97 07/24/18 07:30 07/24/18 07:30 07/24/18 07:30 07/24/18 07:30 07/24/18 07:30 Laboratory Results 07/22/18 08:45 07/24/18 04:02 07/23/18 07/24/18 07/25/18 05:59 05:59 05:59 Intake Total 650 500 300 Output Total 3400 2150 200 Balance -2750 -1650 100 PT 15.7 SEC (12.0-15.0) H 07/18/18 17:55 INR 1.23 (0.83-1.16) H 07/18/18 17:55 - Physical Exam Constitutional: no apparent distress Eyes: PERRL Ears, Nose, Mouth, Throat: moist mucous membranes Cardiovascular: regular rate and rhythym Respiratory: no respiratory distress, inspiratory crackles Gastrointestinal: normoactive bowel sounds, soft, non-tender abdomen Skin: warm Musculoskeletal: full muscle strength, other (b/l LE edema much improved, decreased erythema of LLE) Neurologic: AAOx3 Psychiatric: interacting appropriately ICD10 Worksheet Patient Problems: Problems Problem Status Onset CAD (coronary artery disease) Acute Hypoxia Acute Traumatic hematoma of right wrist Acute
[2018-07-24] MEDS ORDERED: LISINOPRIL 5 MG TAB PO SCH (09:30)
[2018-07-24] MEDS ORDERED: FUROSEMIDE 40 MG/4 ML VIAL IVP SCH (15:00)
[2018-07-24] MEDS: SPIRONOLACTONE 25 MG TAB PO SCH (15:23)
[2018-07-24] MEDS: ATORVASTATIN CALCIUM 40 MG TAB PO SCH (20:13)
[2018-07-25] MEDS: hydrALAZINE 20 MG/ML VIAL IVP PRN (04:35)
[2018-07-25] MEDS: HYDROCODONE/APAP 10/325 TAB PO SCH ×4 (05:01→20:48)
[2018-07-25] MEDS: IPRATROPIUM/ALBUTEROL 3 ML DEYVIAL IH SCH ×4 (06:15→20:31)
[2018-07-25] MEDS: SENNOSIDES/DOCUSATE SODIUM TAB PO SCH ×2 (08:56→20:48)
[2018-07-25] MEDS: ASPIRIN EC 81 MG TAB PO SCH (08:57)
[2018-07-25] MEDS: SPIRONOLACTONE 25 MG TAB PO SCH (08:57)
[2018-07-25] MEDS: CLOPIDOGREL BISULFATE 75 MG TAB PO SCH (08:57)
[2018-07-25] MEDS: GABAPENTIN 300 MG CAP PO SCH ×3 (08:57→20:49)
[2018-07-25] MEDS: HYDROCORTISONE 1% CREAM TP SCH ×2 (08:59→20:50)
[2018-07-25] MEDS: LABETALOL HCL 100 MG TAB PO SCH ×2 (10:58→20:49)
--- NOTE | 2018-07-25 11:52 | HOSPPROG ---
Hospitalist Progress Note Assessment/Plan: RLE cellulitis (PCN allergy) - improving -completed 7 days atbx ICM / Acute HF with anasarca - Wt down 4.5 kg to from 54 to 49.4 kg, baseline appears closer to 46 kg. CXR yest pers reviewed/interp- persistent pulmonary edema/effusions. BNP up to 11K from 7K. Echo showed diastolic dysfunction, mod MR, TR, hypokinesis (present on prior cath 10/2017). CTA with anasarca and b /l bilateral effusions. LE u/s neg for DVT. Still volume overloaded. -resume IV Lasix, will pre-treat with Albumin noting low albumin -lateral decub films to better assess pleural effusions, ?thoracentesis -Nephrology consult today to assist with diuresis in setting of rising BUN and solitary kidney -resumed home spironolactone yesterday (watch K) -follow I&O's, daily weights -cardiology following, appreciate assistance Possible nephrotic syndrome - discussed with Dr Medrano -UA and further w/u per renal -diuresis as above PVD - s/p aorto bi-iliac bypass. CTA c/w R Limb aortic iliac bypass occlusion but appears chronic. -vascular surgery following, no interventions planned -cont Aspirin, statin -added plavix per cardiology recs Acute on chronic respiratory failure - 2/2 COPD and b/l effusions in setting of HF and increased SOB, on 3 L at home -completed 5 day steroid burst -cont duonebs qid plus prn albuterol Pre-renal azotemia with solitary kidney - 2/2 diuresis -nephrology consult CAD- History of CABG. -cont asa, statin. HLD- statin HTN- requiring frequent prn hydral -resumed home spironolactone as above -start labetalol per cards -cont prn hydral Metabolic alkalosis - likely contraction alkalosis in setting of diuresis -follow Thrombocytopenia- heme consult appreciated, plts on the rise -follow -outpt heme/onc f/u H/O Breast Cancer- Hx of BRCA. -outpt f/u Chronic pain- continue home vicodin PRN PPX- Lovenox deferred with low plts, SCD's, ambulation Cor- Full dispo- cont inpatient, requiring ongoing diuresis Subjective: Pt feels ok. LE swelling is better. She has some SOB with activity , denies SOB at rest, no CP. No fevers. She misses her cats. Objective: Vital Signs Temp Pulse Resp BP Pulse Ox 36.7 C 75 14 162/86 H 93 07/25/18 11:17 07/25/18 11:17 07/25/18 11:17 07/25/18 11:17 07/25/18 11:17 Laboratory Results 07/25/18 03:45 07/25/18 03:45 07/24/18 07/25/18 07/26/18 05:59 05:59 05:59 Intake Total 500 960 240 Output Total 2150 2875 600 Balance -1650 -1915 -360 PT 15.7 SEC (12.0-15.0) H 07/18/18 17:55 INR 1.23 (0.83-1.16) H 07/18/18 17:55 - Physical Exam Constitutional: no apparent distress, chronically ill appearing Eyes: PERRL Ears, Nose, Mouth, Throat: moist mucous membranes Cardiovascular: regular rate and rhythym Respiratory: no respiratory distress, reduced air movement, inspiratory crackles Gastrointestinal: normoactive bowel sounds, soft, non-tender abdomen Skin: warm Musculoskeletal: full muscle strength, other (1+ b/l LE edema, much improved) Neurologic: AAOx3 Psychiatric: interacting appropriately ICD10 Worksheet Patient Problems: Problems Problem Status Onset CAD (coronary artery disease) Acute Hypoxia Acute Traumatic hematoma of right wrist Acute
[2018-07-25 12:07] LABS: PLATELET COUNT 58 10^3/uL (150-400)
[2018-07-25] MEDS ORDERED: ALBUMIN 25% 100 ML IV ONE (12:20)
[2018-07-25 12:28] LABS: CREATINE KINASE 28 IU/L (0-156)
--- NOTE | 2018-07-25 12:31 | GCON ---
DATE OF CONSULTATION: 07/25/2018 REASON FOR CONSULT: Opinion regarding edema. HISTORY OF PRESENT ILLNESS: The patient is a 58-year-old female with prior chronic kidney disease da ting back to 1997, when she had a left nephrectomy due to vascular disease. She has had a baseline s anita creatinine subsequently of around 0.7-0.8. The patient was in her usual state of health until s everal days ago when she began having increasing shortness of breath, productive cough of clear sputu m, general malaise and fatigue, erythema in her lower extremities, and just generally feeling poorly. She denies having had fevers, chills, hemoptysis, hematemesis, epistaxis, abdominal pain, diarrhea, constipation, melena, hematochezia, blurry vision, double vision, headache. She did have some ortho pnea, but no paroxysmal nocturnal dyspnea. No palpitations or syncope. No diminished urine output, gross hematuria, dysuria, arthritis, or use of nonsteroidal anti-inflammatory drugs. PAST MEDICAL HISTORY: Significant for: 1. Left nephrectomy in 1997. 2. Peripheral vascular occlusive disease. 3. Status post fem-fem bypass. 4. History of acute myocardial infarction in 1997. 5. Carotid endarterectomies bilaterally. 6. Status post coronary artery bypass grafting x3. 7. Breast cancer. 8. Status post lumpectomy. 9. Hyperlipidemia. 10. Neuropathic pain in her feet. CURRENT MEDICATIONS: Include: 1. Aspirin 81 mg a day. 2. DuoNebs 4 times daily. 3. Albuterol p.r.n. 4. Lipitor 40 mg daily. 5. Plavix 75 mg daily. 6. Lasix 40 mg IV daily. 7. Neurontin 600 mg 3 times daily. 8. Hydralazine 10 mg IV every 6 hours p.r.n. 9. Labetalol 100 mg twice daily. 10. Adalat 25 mg daily. 11. Formally on lisinopril, that was discontinued on July 24. ALLERGIES: To penicillin that causes a rash when she was a little kid. FAMILY HISTORY: Positive for vascular disease and breast cancer in her mom. SOCIAL HISTORY: She is unmarried. She has no children. She has 3 cats. 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 REVIEW OF SYSTEMS: A complete 12-point review of systems is performed with pertinent positives and n egatives, as per the previous sections. PHYSICAL EXAMINATION: VITAL SIGNS: Blood pressure is 169/63, pulse 76, respirations 16, temp 36.6 d egrees. Her outs have been greater than ins over the course of the past 5 days to the tune of about 7-1/2 L. GENERAL: She is awake, alert, cooperative, and in no acute distress. HEENT: Pupils are r eactive to light. Extraocular movements are intact. Mucous membranes are moist. NECK: Bilateral c arotid bruits. HEART: Regular. Positive S4. No rub. I could appreciate no S3. Has a grade 2/6 s ystolic murmur. LUNGS: Bilateral decreased breath sounds in the bases. Occasional rales. No wheez es. ABDOMEN: Bowel sounds are positive. Soft, nontender, nondistended. No obvious organomegaly or masses. Occasional abdominal bruit is heard. EXTREMITIES: Positive edema bilaterally in her lower extremities. She has a bandage on her leg. NEUROLOGIC: No asterixis. SKIN: Changes of arterial and venous disease in her lower extremities bilaterally. LYMPH: No palpable lymphadenopathy. MUSCU LOSKELETAL: No effusions or tenderness. LABORATORY: WBCs 3.8, hemoglobin 15.5, hematocrit 50, platelet count 62,000. Serum sodium is 137, u p from 134 a couple of days ago, potassium 3.8, chloride 96, CO2 36, which has been increasing steadi ly since admission with her diuresis. Urea nitrogen 39, up from 19 on admission. Serum creatinine 0 .9, glucose 127, calcium 8.5, albumin 2.5, INR 1.23, BNP 11,000. Blood cultures x2 are negative at 5 days. Echocardiogram showed an ejection fraction of 50% with mild mitral regurgitation. Right vent ricular systolic pressure of 47. No left ventricular hypertrophy. She did have a dilated IVC that d id not collapse appropriately with breath. Chest x-ray on the , showed persistent pulmonary alan a and effusions. DIAGNOSTIC STUDIES: CT angiogram done on admission showed a left nephrectomy with diffuse edema in h er abdomen, pelvis, and lower extremities bilaterally. Her lower extremity Doppler was negative for deep vein thrombosis bilaterally. IMPRESSION: 1. Volume overload. 2. History of congestive heart failure. 3. Status post left nephrectomy. 4. Peripheral vascular occlusive disease. 5. Anasarca. RECOMMENDATIONS: 1. Continue diuretics as is for now, she is getting about a liter and a half net off every day over the course of the past 5 or so days. We are seeing her CO2 and urea nitrogen creep up a bit. May co nsider adding some Diamox to the mix. 2. My concern is that she may have nephrotic syndrome, and this may not be a primary cardiac issue. I would like to check spot urine chemistries to include a protein creatinine ratio. I would also li ke to check an SPEP, UPEP, LAMIN, etc, to make sure that we are not missing something from that perspec tive. We will also be checking thyroid function tests, rheumatoid factor, a troponin, lipid panel, f ree light chain ratio, etc. Thank you for allowing me to participate in the care of your patient. If there are any questions, pl ease do not hesitate to contact us. We will be following along with you. /[id number]/MODL
--- NOTE | 2018-07-25 13:09 | SOAPPROG ---
SOAP Progress Note Assessment/Plan: Assessment: 1. Peripheral vascular disease. She has an extensive peripheral vascular disease history. In the she had an aortobifem procedure. This was followed in 2010 with a right iliofemoral endarterectomy and subsequently in December of 2017 with a fem-fem bypass associated with a left femoral endarterectomy and a right femoral profundoplasty. Furthermore, she has had a previous right carotid endarterectomy. Fortunately, the recent CTA of her lower extremities indicated that her most recent fem-fem bypass was patent. Additionally, she has well dopplerable pulses in her lower extremities and based on the appearance today has good perfusion. 2. Coronary artery disease. She has had previous coronary artery bypass graft surgery which was done in 1997 following a myocardial infarction. At that time she had 3 vessel bypass performed. Last year coronary angiography was performed. She had a 40% left main lesion, occlusion of the mid LAD, ramus intermedius and right coronary arteries and luminal irregularities in the circumflex. She had a patent saphenous vein graft to the LAD. Ejection fraction was 40-45%. This appears to be stable at the present time. She is not experiencing symptoms of angina. Her ejection fraction this admission by echocardiography was 50%. 3. Valvular heart disease. By echocardiography she has moderate mitral and mild -to-moderate tricuspid regurgitation. Her estimated RVSP was 47 mmHg. 4. COPD. This is oxygen dependent. At baseline she is on 3 L nasal cannula. 5. Chronic renal insufficiency. She has a single kidney. 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 6. Lower extremity cellulitis. Currently on antibiotics being followed by infectious disease. Generally, she has shown significant improvement since her initial hospitalization. She still appears to be mildly volume overloaded. Her electrolytes would indicate that she is gradually developing a contraction alkalosis. Yesterday Aldactone was added to help with blood pressure control. In reviewing her labs lipids are under nice control. 07/25/2018: Overall improved however her chest x-ray continues to show significant effusions. Additionally, I am concerned about her progressively increasing BUN and contraction alkalosis. Plan: 1. We will plan to consult Nephrology for their recommendations. 2. I have ordered a chest x-ray with bilateral decubitus views to evaluate for the size of these effusions and see if they might be amenable to thoracentesis. 3. Plan to continue diuretic therapy. I have resumed her Lasix at 40 mg daily. 4. Blood pressures are poorly controlled. I have added carvedilol 3.125 mg twice daily. Spironolactone was started yesterday. We may consider the addition of a dihydropyridine calcium channel salma here in the near future depending on her clinical course. 5. We will follow along with you. 07/25/18 13:07 Subjective: Clinically she has shown significant improvement since her hospitalization in feels that with each day she gets better. Her oxygen requirements are now baseline. Her chest x-ray does, however, continued to show bilateral pleural effusions that really have not improved much over the last several days. Objective: Vital Signs Temp Pulse Resp BP Pulse Ox 36.7 C 65 17 162/86 H 91 L 07/25/18 11:17 07/25/18 12:17 07/25/18 12:17 07/25/18 11:17 07/25/18 12:17 Laboratory Results 07/25/18 03:45 07/25/18 03:45 07/24/18 07/25/18 07/26/18 05:59 05:59 05:59 Intake Total 500 960 240 Output Total 2150 2875 600 Balance -1650 -1915 -360 PT 15.7 SEC (12.0-15.0) H 07/18/18 17:55 INR 1.23 (0.83-1.16) H 07/18/18 17:55 Physical Exam - Physical Exam General Appearance: thin Respiratory: lungs clear, decreased breath sounds (Both bases worse on the right ) Cardiac/Chest: regular rate, rhythm, edema (Trace edema), JVD (Jugular venous distension to the mid neck sitting at 60 degrees), No gallop Abdomen: non-tender Pelvic Exam: deferred Rectal: deferred ICD10 Worksheet Patient Problems: Problems Problem Status Onset CAD (coronary artery disease) Acute Hypoxia Acute Traumatic hematoma of right wrist Acute
[2018-07-25 13:16] LABS: HIV TYPE 1 AND 2 NEGATIVE (NEGATIVE)
[2018-07-25] MEDS: FUROSEMIDE 40 MG/4 ML VIAL IVP SCH (16:12)
[2018-07-25] MEDS: ATORVASTATIN CALCIUM 40 MG TAB PO SCH (20:49)
[2018-07-26] MEDS: diphenhydrAMINE 25 MG CAP PO PRN (01:08)
[2018-07-26] MEDS: IPRATROPIUM/ALBUTEROL 3 ML DEYVIAL IH SCH ×4 (05:10→21:16)
[2018-07-26] MEDS: HYDROCODONE/APAP 10/325 TAB PO SCH ×4 (06:04→19:45)
[2018-07-26] MEDS: SENNOSIDES/DOCUSATE SODIUM TAB PO SCH ×2 (09:44→21:28)
[2018-07-26] MEDS: CLOPIDOGREL BISULFATE 75 MG TAB PO SCH (09:44)
[2018-07-26] MEDS: ASPIRIN EC 81 MG TAB PO SCH (09:44)
[2018-07-26] MEDS: GABAPENTIN 300 MG CAP PO SCH ×3 (09:44→21:29)
[2018-07-26] MEDS: SPIRONOLACTONE 25 MG TAB PO SCH (09:44)
[2018-07-26] MEDS: FUROSEMIDE 40 MG/4 ML VIAL IVP SCH ×2 (09:45→19:44)
[2018-07-26] MEDS: LABETALOL HCL 100 MG TAB PO SCH ×2 (09:45→21:28)
[2018-07-26] MEDS: HYDROCORTISONE 1% CREAM TP SCH ×2 (09:52→21:31)
--- NOTE | 2018-07-26 10:23 | SOAPPROG ---
SOAP Progress Note Assessment/Plan: Assessment: 1. Peripheral vascular disease. She has an extensive peripheral vascular disease history. In the she had an aortobifem procedure. This was followed in 2010 with a right iliofemoral endarterectomy and subsequently in December of 2017 with a fem-fem bypass associated with a left femoral endarterectomy and a right femoral profundoplasty. Furthermore, she has had a previous right carotid endarterectomy. Fortunately, the recent CTA of her lower extremities indicated that her most recent fem-fem bypass was patent. Additionally, she has well dopplerable pulses in her lower extremities and based on the appearance today has good perfusion. 2. Coronary artery disease. She has had previous coronary artery bypass graft surgery which was done in 1997 following a myocardial infarction. At that time she had 3 vessel bypass performed. Last year coronary angiography was performed. She had a 40% left main lesion, occlusion of the mid LAD, ramus intermedius and right coronary arteries and luminal irregularities in the circumflex. She had a patent saphenous vein graft to the LAD. Ejection fraction was 40-45%. This appears to be stable at the present time. She is not experiencing symptoms of angina. Her ejection fraction this admission by echocardiography was 50%. 3. Valvular heart disease. By echocardiography she has moderate mitral and mild -to-moderate tricuspid regurgitation. Her estimated RVSP was 47 mmHg. 4. COPD. This is oxygen dependent. At baseline she is on 3 L nasal cannula. 5. Chronic renal insufficiency. She has a single kidney. 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 6. Lower extremity cellulitis. Currently on antibiotics being followed by infectious disease. Generally, she has shown significant improvement since her initial hospitalization. She still appears to be mildly volume overloaded. Her electrolytes would indicate that she is gradually developing a contraction alkalosis. Yesterday Aldactone was added to help with blood pressure control. In reviewing her labs lipids are under nice control. 07/25/2018: Overall improved however her chest x-ray continues to show significant effusions. Additionally, I am concerned about her progressively increasing BUN and contraction alkalosis. 07/26/2018: She appears to be doing a little bit better today. Blood pressures are substantially improved with the addition of Aldactone and labetalol. Her exam would indicate that her effusions are likely smaller. Lower extremity edema has likewise improved. I appreciate the input from Nephrology and from Hospital Medicine. Plan: 1. I would like her to receive an additional 2 doses of IV Lasix today. 2. I think we should continue her other medications as prescribed. 3. I think she is close to being discharged from the hospital. 07/26/18 10:24 Objective: Vital Signs Temp Pulse Resp BP Pulse Ox 36.7 C 62 14 145/57 H 93 07/26/18 07:08 07/26/18 09:45 07/26/18 07:08 07/26/18 09:45 07/26/18 07:08 Laboratory Results 07/25/18 03:45 07/26/18 03:35 07/25/18 07/26/18 07/27/18 05:59 05:59 05:59 Intake Total 960 1190 Output Total 2875 800 1400 Balance -1915 390 -1400 PT 15.7 SEC (12.0-15.0) H 07/18/18 17:55 INR 1.23 (0.83-1.16) H 07/18/18 17:55 Physical Exam - Physical Exam General Appearance: no apparent distress, thin Neck: non-tender, full range of motion Respiratory: decreased breath sounds (At the bases) Cardiac/Chest: regular rate, rhythm, edema (Trace bilateral), JVD (To the mid neck bilaterally) Abdomen: non-tender, soft ICD10 Worksheet Patient Problems: Problems Problem Status Onset CAD (coronary artery disease) Acute Hypoxia Acute Traumatic hematoma of right wrist Acute
--- NOTE | 2018-07-26 10:56 | SOAPPROG ---
SOAP Progress Note Assessment/Plan: Assessment: 1. Volume overload (HFPEF and Pulm HTN) She has had a brisk diuresis, with increased BUN and alkalosis. Cards note reviewed, and I discussed with Dr. Ron. He is giving two additional doses of diuretics, which seems fine. As an outpatient, she will need to monitor daily weights, restrict sodium. and wear her oxygen. We reviewed this. She does not appear nephrotic based on UPCR. 2. Positive Rheum Factor Will check complements, Hep Seros. I do not see signs of GN or vasculitis at this time. 3. CM Difficult financial situations. Plan: 07/26/18 10:53 07/26/18 10:57 Objective: Vital Signs Temp Pulse Resp BP Pulse Ox 36.7 C 62 14 145/57 H 93 07/26/18 07:08 07/26/18 09:45 07/26/18 07:08 07/26/18 09:45 07/26/18 07:08 Laboratory Results 07/25/18 03:45 07/26/18 03:35 07/25/18 07/26/18 07/27/18 05:59 05:59 05:59 Intake Total 960 1190 Output Total 2875 800 1400 Balance -1915 390 -1400 PT 15.7 SEC (12.0-15.0) H 07/18/18 17:55 INR 1.23 (0.83-1.16) H 07/18/18 17:55 Physical Exam - Physical Exam General Appearance: mild distress Respiratory: decreased breath sounds Cardiac/Chest: regular rate, rhythm, systolic murmur Extremities: pedal edema Neuro/Psych: oriented x 3 ICD10 Worksheet Patient Problems: Problems Problem Status Onset CAD (coronary artery disease) Acute Hypoxia Acute Traumatic hematoma of right wrist Acute
[2018-07-26 13:09] LABS: HEPATITIS B SURFACE ANTIGEN NEGATIVE (NEGATIVE)
[2018-07-26 13:12] LABS: HEPATITIS C ANTIBODY TOTAL NEGATIVE (NEGATIVE)
--- NOTE | 2018-07-26 14:34 | ASMTCMCOM ---
CM Note CM Note Notes: 07/26/2018 Case Management Note Discussed pt during rounds. Anticipating d/c tomorrow. Provided [facility] info to patient to connect to services to address her issues with electricity. Pt has a medical advocate. Recommended pt connect with her again. 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 Provided info to [facility] for pt to connect with. Pt plans to apply for disability upon discharge. Requested Palliative Care order. Faxed updates to [facility]. Case Management d/c poc: [facility]. Case Management to follow. Date Signed: 07/26/2018 02:34 PM Electronically Signed By:Ariana Small RN
--- NOTE | 2018-07-26 17:07 | HOSPPROG ---
Hospitalist Progress Note Assessment/Plan: RLE cellulitis (PCN allergy) - improving -completed 7 days atbx ICM / Acute HF with anasarca - weight about stable from yesterday 49 to 50 kg today but she still diuresed well with 2650 out. CXR yest pers reviewed/ interp- persistent pulmonary edema/effusions. Echo showed diastolic dysfunction, mod MR, TR, hypokinesis (present on prior cath 10/2017). CTA with anasarca and b/l bilateral effusions. LE u/s neg for DVT. edema substantially improved from admission. -lasix 40 MG IVP today per cardiology -cont aldactone -nephrology and cardiology following -follow I&O's, daily weights -cardiology following, appreciate assistance Possible nephrotic syndrome - discussed with Dr Medrano -complement levels pending -serum free light chains -CANCA pending -UA and further w/u per renal -diuresis as above PVD - s/p aorto bi-iliac bypass. CTA c/w R Limb aortic iliac bypass occlusion but appears chronic. -vascular surgery following, no interventions planned -cont Aspirin, statin -added plavix per cardiology recs Acute on chronic respiratory failure - 2/2 COPD and b/l effusions in setting of HF and increased SOB, on 3 L at home, currently at baseline -completed 5 day steroid burst -cont duonebs qid plus prn albuterol Pre-renal azotemia with solitary kidney - 2/2 diuresis -nephrology consult -from their standpoint kidneys doing well. One more day of diuresis and then possible dc home. CAD- History of CABG. -cont asa, statin. HLD- statin HTN- requiring frequent prn hydral -resumed home spironolactone as above -start labetalol per cards -cont prn hydral Metabolic alkalosis - likely contraction alkalosis in setting of diuresis -follow Thrombocytopenia- heme consult appreciated, plts on the rise -follow -outpt heme/onc f/u H/O Breast Cancer- Hx of BRCA. -outpt f/u Chronic pain- continue home vicodin PRN PPX- Lovenox deferred with low plts, SCD's, ambulation Cor- Full dispo- cont inpatient, requiring ongoing diuresis PPX- Lovenox Fluids-None Lytes-WNL Nutrition- regular Cor- Full dispo- inpatient for cellulitis, anasarca, possible CHF. Subjective: breathing stable, concerned about living situations and bills at home, but no physical complaints. Objective: Vital Signs Temp Pulse Resp BP Pulse Ox 36.8 C 61 18 147/49 H 93 07/26/18 15:59 07/26/18 15:59 07/26/18 16:46 07/26/18 15:59 07/26/18 15:59 Laboratory Results 07/25/18 03:45 07/26/18 03:35 07/25/18 07/26/18 07/27/18 05:59 05:59 05:59 Intake Total 960 1190 500 Output Total 2875 800 2650 Balance -1915 390 -2150 PT 15.7 SEC (12.0-15.0) H 07/18/18 17:55 INR 1.23 (0.83-1.16) H 07/18/18 17:55 - Physical Exam Constitutional: no apparent distress, appears nourished, not in pain Eyes: PERRL, anicteric sclera, EOMI Ears, Nose, Mouth, Throat: moist mucous membranes, hearing normal, ears appear normal, no oral mucosal ulcers Cardiovascular: regular rate and rhythym, no murmur, rub, or gallop Respiratory: no respiratory distress, reduced air movement, expiratory wheeze Gastrointestinal: normoactive bowel sounds, soft, non-tender abdomen, no palpable masses Genitourinary: no bladder fullness, no bladder tenderness, no renal bruits Skin: no fluctuance (legs with substantially less swelling than on admission. healing wounds. ), no induration, rash, other Musculoskeletal: full muscle strength, no muscle tenderness, normal joint ROM Neurologic: AAOx3, sensation intact bilaterally Psychiatric: interacting appropriately, not anxious, not encephalopathic, thought process linear Lymph, Heme, Immunologic: no cervical LAD, no supraclavicular LAD ICD10 Worksheet Patient Problems: Problems Problem Status Onset CAD (coronary artery disease) Acute Hypoxia Acute Traumatic hematoma of right wrist Acute
[2018-07-26] MEDS: ATORVASTATIN CALCIUM 40 MG TAB PO SCH (21:29)
[2018-07-27] MEDS: diphenhydrAMINE 25 MG CAP PO PRN (03:10)
[2018-07-27] MEDS: IPRATROPIUM/ALBUTEROL 3 ML DEYVIAL IH SCH ×2 (05:45→11:03)
[2018-07-27] MEDS: HYDROCODONE/APAP 10/325 TAB PO SCH ×2 (06:29→12:31)
[2018-07-27] MEDS: ASPIRIN EC 81 MG TAB PO SCH (08:40)
[2018-07-27] MEDS: SPIRONOLACTONE 25 MG TAB PO SCH (08:40)
[2018-07-27] MEDS: GABAPENTIN 300 MG CAP PO SCH (08:40)
[2018-07-27] MEDS: LABETALOL HCL 100 MG TAB PO SCH (08:41)
[2018-07-27] MEDS: SENNOSIDES/DOCUSATE SODIUM TAB PO SCH (08:41)
[2018-07-27] MEDS: CLOPIDOGREL BISULFATE 75 MG TAB PO SCH (08:41)
[2018-07-27] MEDS: FUROSEMIDE 40 MG/4 ML VIAL IVP SCH (08:42)
[2018-07-27] MEDS: HYDROCORTISONE 1% CREAM TP SCH (08:42)
--- NOTE | 2018-07-27 08:44 | SOAPPROG ---
SOAP Progress Note Assessment/Plan: Assessment: CHF, feeling better today edema, much improved no significant proteinuria, not nephrotic syndrome volume overload better contraction alkalosis improved markedly elevated rheumatoid factor, will need follow up on that, possible outpatient rheum eval Plan: continue diuresis OK for dismissal when OK with others no follow up with renal needed, I did leave her my card should she wish to see us in the future 07/27/18 08:40 Subjective: feeling better wants to get home to her cats and her job a coworker from [employer] stopped by yesterday, she was pleased to see her no cp sob nausea or vomiting sleeping well no pain appetite and energy are improving Objective: Vital Signs Temp Pulse Resp BP Pulse Ox 36.7 C 55 L 19 156/59 H 94 07/27/18 07:26 07/27/18 07:26 07/27/18 07:26 07/27/18 07:26 07/27/18 07:26 Laboratory Results 07/25/18 03:45 07/27/18 03:40 07/26/18 07/27/18 07/28/18 05:59 05:59 05:59 Intake Total 1190 800 Output Total 800 3950 Balance 390 -3150 PT 15.7 SEC (12.0-15.0) H 07/18/18 17:55 INR 1.23 (0.83-1.16) H 07/18/18 17:55 Physical Exam - Physical Exam General Appearance: alert Neck: normal inspection Respiratory: crackles (bases, better than Monday), No wheezing Cardiac/Chest: regular rate, rhythm, edema (edema better), systolic murmur, No friction rub Abdomen: normal bowel sounds, non-tender, soft Skin: warm/dry Extremities: swelling (improved) Neuro/Psych: alert, normal mood/affect, oriented x 3 ICD10 Worksheet Patient Problems: Problems Problem Status Onset CAD (coronary artery disease) Acute Hypoxia Acute Traumatic hematoma of right wrist Acute
[2018-07-27 12:31] VITALS: BP 157/66
[2018-07-27] MEDS ORDERED: FUROSEMIDE 40 MG TAB PO SCH (13:00)
--- NOTE | 2018-07-27 13:04 | SOAPPROG ---
SOAP Progress Note Assessment/Plan: Assessment: 1. Peripheral vascular disease. She has an extensive peripheral vascular disease history. In the she had an aortobifem procedure. This was followed in 2010 with a right iliofemoral endarterectomy and subsequently in December of 2017 with a fem-fem bypass associated with a left femoral endarterectomy and a right femoral profundoplasty. Furthermore, she has had a previous right carotid endarterectomy. Fortunately, the recent CTA of her lower extremities indicated that her most recent fem-fem bypass was patent. Additionally, she has well dopplerable pulses in her lower extremities and based on the appearance today has good perfusion. 2. Coronary artery disease. She has had previous coronary artery bypass graft surgery which was done in 1997 following a myocardial infarction. At that time she had 3 vessel bypass performed. Last year coronary angiography was performed. She had a 40% left main lesion, occlusion of the mid LAD, ramus intermedius and right coronary arteries and luminal irregularities in the circumflex. She had a patent saphenous vein graft to the LAD. Ejection fraction was 40-45%. This appears to be stable at the present time. She is not experiencing symptoms of angina. Her ejection fraction this admission by echocardiography was 50%. 3. Valvular heart disease. By echocardiography she has moderate mitral and mild -to-moderate tricuspid regurgitation. Her estimated RVSP was 47 mmHg. 4. COPD. This is oxygen dependent. At baseline she is on 3 L nasal cannula. 5. Chronic renal insufficiency. She has a single kidney. 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 6. Lower extremity cellulitis. Currently on antibiotics being followed by infectious disease. Generally, she has shown significant improvement since her initial hospitalization. She still appears to be mildly volume overloaded. Her electrolytes would indicate that she is gradually developing a contraction alkalosis. Yesterday Aldactone was added to help with blood pressure control. In reviewing her labs lipids are under nice control. 07/25/2018: Overall improved however her chest x-ray continues to show significant effusions. Additionally, I am concerned about her progressively increasing BUN and contraction alkalosis. 07/26/2018: She appears to be doing a little bit better today. Blood pressures are substantially improved with the addition of Aldactone and labetalol. Her exam would indicate that her effusions are likely smaller. Lower extremity edema has likewise improved. I appreciate the input from Nephrology and from Hospital Medicine. 07/27/2018: At this point, I think she is stable for discharge. She is nearly euvolemic. Plan: She will be transitioned from IV to p.o. Lasix. I will plan to see her back in the office late next week. 07/27/18 13:03 Subjective: She is doing well today. She had nearly 3000 cc yesterday of net negative diuresis. She notes that her respiratory status has improved and she really has no limiting dyspnea. She continues with only mild lower extremity edema. Objective: Vital Signs Temp Pulse Resp BP Pulse Ox 36.6 C 61 16 157/66 H 91 L 07/27/18 12:00 07/27/18 12:00 07/27/18 12:00 07/27/18 12:00 07/27/18 12:00 Laboratory Results 07/25/18 03:45 07/27/18 03:40 07/26/18 07/27/18 07/28/18 05:59 05:59 05:59 Intake Total 1190 800 Output Total 800 3950 Balance 390 -3150 PT 15.7 SEC (12.0-15.0) H 07/18/18 17:55 INR 1.23 (0.83-1.16) H 07/18/18 17:55 Physical Exam - Physical Exam General Appearance: no apparent distress, thin Neck: non-tender Respiratory: lungs clear Cardiac/Chest: regular rate, rhythm, edema (Minimal lower extremity edema) Peripheral Pulses: 2+: carotid (R), carotid (L) Abdomen: non-tender, soft Pelvic Exam: deferred Rectal: deferred ICD10 Worksheet Patient Problems: Problems Problem Status Onset CAD (coronary artery disease) Acute Hypoxia Acute Traumatic hematoma of right wrist Acute
--- NOTE | 2018-07-27 14:23 | PDIAF ---
- Diagnosis Code Status: Full Code - Medication Management Discharge Medications: electronically signed and located in the Home Medication List. - Orders Services needed: Home Care, Registered Nurse, Physical Therapy Home Care Face to Face: I certify that this patient was under my care and that I had the required [id number] encounter meeting the encounter requirements on the discharge day. My findings support the fact that the patient is homebound as defined in Home Care Face to Face Continued: CMS Chapter 7 Medicare Benefits Manual 30.1.1 , The condition of the patient is such that there exists a normal inability to leave home and consequently, leaving home would require a considerable and taxing effort. Diet Recommendation: cardiac -low fat low salt Diet Texture: Regular Texture Diet Additional Instructions: Wound care: Change dressing to left lower leg every MWF day and prn. Apply blue top dimethicone Cream to all areas of feet except between toes that dont have dressings. (also ok to use patient's own cream) 1. Clean well with ns and gauze. May need to scrub to remove tissue to reveal pink wound bed. 2. Skin prep preet wound 3. Iodosorb gel to wound bed 4. Cover with Allevyn Life or other foam border dressing. 5. Secure with netting. Please follow up within 3- 4 weeks of discharge with [facility] You may reach them at [phone] for an appointment and continued management of your wounds. Please call them jess to schedule your appointment as they fill up quickly. If before that time you have any issues, please follow up with your PCP. Saira STEIN Follow up with Cardiology in one week. check your weight daily and keep a log. if you gain or loose too much weight from day to day be sure to let your PCP know so they can adjust your medications. - Follow Up Care Current Providers and Referrals: ZENOBIA DOMINGUEZ [Primary Care Provider] - Anjum Angelo, MANAGEMENT INFORMATION SYSTEMS DIRECTOR [Certified Nurse Practioner] - 08/02/18 2:00 pm (Your follow up appointment is in [place] with Anjum Angelo July at 14:00.)
--- NOTE | 2018-07-27 14:44 | ASMTLACE ---
LACE Length of stay for Answers: 7-13 days current admission Acuity / Level of Answers: Yes Care: Did the patient have an inpatient admission? Comorbidities - select Answers: Chronic pulmonary disease all that apply Coronary Artery Disease Opioid dependence / Chronic pain Peripheral vascular disease Previous myocardial infarction Other Notes: HTN; HLD # of Emergency department Answers: 0 visits in the last 6 months Score: 19 Date Signed: 07/27/2018 02:43 PM Electronically Signed By:Ariana Small RN
--- NOTE | 2018-07-27 14:46 | ASMTDCNOTE ---
Case Management Discharge Discharge Order Complete? Answers: Yes Patient to Obtain Answers: via Family Medications Transportation Arranged Answers: Family/Friends Faxed Final Orders Answers: Yes Notes: to deric Agency/Facility Transfer Answers: Yes Notes: to deric Report Printed & Faxed to Receiving Agency Discharge Comments Notes: 07/27/2018 Case Management Note Faxed final orders to [facility] for outpatient follow after discussion with pt and [facility] home health nurse PT. Pt arranged transport home. Date Signed: 07/27/2018 02:46 PM Electronically Signed By:Ariana Small RN
--- NOTE | 2018-07-27 14:47 | ASDISCHSUM ---
Discharge Information Plan Status:Home with Home Health Medically Cleared to Leave:07/26/2018 Discharge Date:07/26/2018 CM D/C Disposition:Home Health Service ADT D/C Disposition:Home, Routine, Self-Care Projected Discharge Date:07/20/2018 11:00 AM Transportation at D/C:Friend Discharge Delay Reason: Follow-Up Date:07/20/2018 11:00 AM Discharge Slot: Final Diagnosis: Placement Information Referral Type:*Home Health Care Services Referral ID:[id number] Provider Name:[facility] (formerly [facility]) Address 1:[address] [address] Address 2: City:[place] Selection Factors: State:[place] Referral Type:Palliative Care Referral ID:[id number] Provider Name:[facility] Address 1:[address] Phone Number: Address 2: Fax Number: [facility]:[place] Selection Factors: State:[place] Patient Contact Information Contact Name:FISH Relationship:Other Address:[address] [place] [address] City:[place] Alternate Phone: [facility]/Zip Code:[place] [address] Email: Financial Information Financial Class:Medicaid Primary Plan Desc:[facility] Primary Plan Number:[id number] Secondary Plan Desc: Secondary Plan Number: Assessment Information LACE LACE Length of stay for Answers: 7-13 days current admission Acuity / Level of Answers: Yes Care: Did the patient have an inpatient admission? Comorbidities - select Answers: Chronic pulmonary disease all that apply Coronary Artery Disease Opioid dependence / Chronic pain Peripheral vascular disease Previous myocardial infarction Other Notes: HTN; HLD # of Emergency department Answers: 0 visits in the last 6 months Score: 19 Date Signed: 07/27/2018 02:43 PM Electronically Signed By:Ariana Small RN [facility] CM Progress Note CM Note CM Note Notes: 07/17/2018 Case Management Note Discussed in rounds today. Pt admitted for hypoxia and possible cellulitis. Met w/pt to discuss PT recommendation for home care. Pt in agreement. Discussed multiple options, pt requested referral to [facility]. Faxed via [employer]. [facility] referral completed. Discharge date unclear. Case Management d/c poc: [facility] home health nurse licensed practical PT Case Management to follow. Date Signed: 07/17/2018 04:25 PM Electronically Signed By:Ariana Small RN [facility] CM Progress Note CM Note CM Note Notes: Pts case discussed in tx rounds. Pt will most likely d/c over the weekend. Pt is still volume overloaded. Updates sent to [facility]. CM to follow. Plan: [facility] HC; PT, RN Date Signed: 07/20/2018 02:47 PM Electronically Signed By:TU Montes De Oca [facility] CM Progress Note CM Note CM Note Notes: 07/23/2018 Case Management Note Discussed with this morning. Anticipating d/c in next 1 - 2 days. Pt to follow up as wound care clinic. [facility] visited in person. Case Management d/c poc: [facility] Home Health RN PT Case Management to follow. Date Signed: 07/23/2018 03:09 PM Electronically Signed By:Ariana Small RN [facility] CM Progress Note CM Note CM Note Notes: 07/26/2018 Case Management Note Discussed pt during rounds. Anticipating d/c tomorrow. Provided [facility] info to patient to connect to services to address her issues with electricity. Pt has a medical advocate. Recommended pt connect with her again. 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 Provided info to [facility] for pt to connect with. Pt plans to apply for disability upon discharge. Requested Palliative Care order. Faxed updates to [facility]. Case Management d/c poc: [facility]. Case Management to follow. Date Signed: 07/26/2018 02:34 PM Electronically Signed By:Ariana Small RN Case Management Discharge Plan Note Case Management Discharge Discharge Order Complete? Answers: Yes Patient to Obtain Answers: via Family Medications Transportation Arranged Answers: Family/Friends Faxed Final Orders Answers: Yes Notes: to [facility] Agency/Facility Transfer Answers: Yes Notes: to [facility] Report Printed & Faxed to Receiving Agency Discharge Comments Notes: 07/27/2018 Case Management Note Faxed final orders to [facility] for outpatient follow after discussion with pt and [facility] home health nurse licensed practical PT. Pt arranged transport home. Date Signed: 07/27/2018 02:46 PM Electronically Signed By:Ariana Small RN Intervention Information
--- NOTE | 2018-07-27 17:34 | PDDCSUM ---
Discharge Summary Discharge Summary: The patient is a 58-year-old female with past medical history of substantial peripheral vascular disease with numerous stents placed in the past, COPD chronically on oxygen who presented with lower extremity claudication swelling and erythema of her left leg. She underwent CT runoff of her legs which showed patent grafts but patient had substantial fluid overload including anasarca to her abdomen. There was no indication for further stenting or bypass of her lower extremity vasculature. An echocardiogram was obtained which showed low normal left ventricular ejection fraction. Cardiology was consulted who recommended aggressive diuresis. There was concern for a left lower extremity cellulitis and patient was started on vancomycin. Infectious Disease was consulted who recommended a total of 7 day course of antibiotics along with wound care. Nephrology was consulted whose workup showed no medical renal disease. The patient was aggressively diuresed over the course of her stay with excellent results. The patient was discharged on oral diuretic therapy to follow up with Cardiology and her primary care physician. Discharge diagnosis Coronary artery disease Fluid overload Peripheral vascular disease Chronic hypoxemic respiratory failure Discharge Follow-up Cardiology Primary care physician Discharge medications Lasix 40 mg daily p.o. Labetalol 100 mg twice daily Spironolactone 25 mg daily Aspirin Plavix Over 35 min were spent on the discharge of this patient including discharge planning arranging follow-up explaining the plan with the patient and arranging medications
--- NOTE | 2018-07-27 17:35 | HOSPPROG ---
Hospitalist Progress Note Assessment/Plan: RLE cellulitis (PCN allergy) - improving -completed 7 days atbx ICM / Acute HF with anasarca - weight about stable from yesterday 49 to 50 kg today but she still diuresed well with 2650 out. CXR yest pers reviewed/ interp- persistent pulmonary edema/effusions. Echo showed diastolic dysfunction, mod MR, TR, hypokinesis (present on prior cath 10/2017). CTA with anasarca and b/l bilateral effusions. LE u/s neg for DVT. edema substantially improved from admission. -lasix 40 MG IVP today per cardiology -cont aldactone -nephrology and cardiology following -follow I&O's, daily weights -cardiology following, appreciate assistance Possible nephrotic syndrome - discussed with Dr Medrano -complement levels pending -serum free light chains -CANCA pending -UA and further w/u per renal -diuresis as above PVD - s/p aorto bi-iliac bypass. CTA c/w R Limb aortic iliac bypass occlusion but appears chronic. -vascular surgery following, no interventions planned -cont Aspirin, statin -added plavix per cardiology recs Acute on chronic respiratory failure - 2/2 COPD and b/l effusions in setting of HF and increased SOB, on 3 L at home, currently at baseline -completed 5 day steroid burst -cont duonebs qid plus prn albuterol Pre-renal azotemia with solitary kidney - 2/2 diuresis -nephrology consult -from their standpoint kidneys doing well. One more day of diuresis and then possible dc home. CAD- History of CABG. -cont asa, statin. HLD- statin HTN- requiring frequent prn hydral -resumed home spironolactone as above -start labetalol per cards -cont prn hydral Metabolic alkalosis - likely contraction alkalosis in setting of diuresis -follow Thrombocytopenia- heme consult appreciated, plts on the rise -follow -outpt heme/onc f/u H/O Breast Cancer- Hx of BRCA. -outpt f/u Chronic pain- continue home vicodin PRN PPX- Lovenox deferred with low plts, SCD's, ambulation Cor- Full dispo- cont inpatient, requiring ongoing diuresis PPX- Lovenox Fluids-None Lytes-WNL Nutrition- regular Cor- Full dispo- inpatient for cellulitis, anasarca, possible CHF. Subjective: No complaints Objective: Vital Signs Temp Pulse Resp BP Pulse Ox 36.6 C 61 16 157/66 H 91 L 07/27/18 12:00 07/27/18 12:00 07/27/18 12:00 07/27/18 12:00 07/27/18 12:00 Laboratory Results 07/25/18 03:45 07/27/18 03:40 07/26/18 07/27/18 07/28/18 05:59 05:59 05:59 Intake Total 1190 800 Output Total 800 3950 Balance 390 -3150 PT 15.7 SEC (12.0-15.0) H 07/18/18 17:55 INR 1.23 (0.83-1.16) H 07/18/18 17:55 - Physical Exam Constitutional: no apparent distress, appears nourished, not in pain Eyes: PERRL, anicteric sclera, EOMI Ears, Nose, Mouth, Throat: moist mucous membranes, hearing normal, ears appear normal, no oral mucosal ulcers Cardiovascular: regular rate and rhythym, no murmur, rub, or gallop Respiratory: no respiratory distress, no rales or rhonchi, clear to auscultation Gastrointestinal: normoactive bowel sounds, soft, non-tender abdomen, no palpable masses Genitourinary: no bladder fullness, no bladder tenderness, no renal bruits Skin: no rashes or abrasions, no fluctuance, no induration Musculoskeletal: full muscle strength, no muscle tenderness, normal joint ROM Neurologic: AAOx3, sensation intact bilaterally Psychiatric: interacting appropriately, not anxious, not encephalopathic, thought process linear Lymph, Heme, Immunologic: no cervical LAD, no supraclavicular LAD ICD10 Worksheet Patient Problems: Problems Problem Status Onset CAD (coronary artery disease) Acute Hypoxia Acute Traumatic hematoma of right wrist Acute
== END 2018-07-27 15:40 | disposition home or self-care (01) | DRG 194 ==
LOC: F2W 11:42 → OBSVTOIN 07-17 15:36
PROVIDERS: ADMIT Internal Medicine; ATTEND Internal Medicine
DX: I11.0 Hypertensive heart disease with heart failure (principal); I50.41 Acute combined systolic (congestive) and diastolic (congestive) heart failure; L03.115 Cellulitis of right lower limb; D69.6 Thrombocytopenia, unspecified; J96.20 Acute and chronic respiratory failure, unspecified whether with hypoxia or hypercapnia; E87.3 Alkalosis; I73.9 Peripheral vascular disease, unspecified; I25.10 Atherosclerotic heart disease of native coronary artery without angina pectoris; J44.9 Chronic obstructive pulmonary disease, unspecified; I08.1 Rheumatic disorders of both mitral and tricuspid valves; E78.5 Hyperlipidemia, unspecified; G89.29 Other chronic pain; G62.9 Polyneuropathy, unspecified; I25.2 Old myocardial infarction; Z95.5 Presence of coronary angioplasty implant and graft; Z95.1 Presence of aortocoronary bypass graft; Z99.81 Dependence on supplemental oxygen; Z90.5 Acquired absence of kidney; Z85.3 Personal history of malignant neoplasm of breast; Z87.891 Personal history of nicotine dependence; Z92.3 Personal history of irradiation
CPT/HCPCS: 86334-90; 97116-GP; 97161-GP; 97530-GP; G0378; G0472; J0360; J1650; J1940; J2930; J3370; J3475; J7512; J7613; P9047; Q9967